=== PATIENT | female | born 1960 | race Caucasian/White ===

== ENCOUNTER 2021-04-06 14:09 | Emergency (ER) | payer MEDICARE, MEDICAID, SELFPAY ==
--- NOTE | ~2021-04-06 | XR_ITS ---
EXAMINATION: XR CHEST CLINICAL INFORMATION: Shortness of breath. COMPARISON: 08/16/2015 chest and rib radiographs. TECHNIQUE: 2 views of the chest were obtained. FINDINGS: No significant abnormality is noted involving the heart, lungs, mediastinum, bony thorax or soft tissues. Surgical clips overlie the right upper quadrant. XR/XR chest 2V IMPRESSION: No acute cardiopulmonary process.
[2021-04-06 14:12] VITALS: BP 153/81; PULSE 89; RESP 20; TEMP 36.5; O2SAT 93; BMI 30.7
[2021-04-06 16:04] LABS: Influenza A PCR NEGATIVE (Negative); Influenza B PCR NEGATIVE (Negative); Resp Syncy Virus RNA Qual PCR NEGATIVE (Negative); SARS COV2 PCR INHOUSE POSITIVE (Negative)
--- NOTE | 2021-04-06 16:04 | ED_ITS ---
HPI - URI/Sore Throat General Chief Complaint: Upper Respiratory Symptoms Stated Complaint: difficulty breathing Time Seen by Provider: 04/06/21 15:46 Source: patient Mode of arrival: ambulatory Limitations: no limitations History of Present Illness HPI Narrative: 60 yo pt presented c/o cough,congestion.She i been vaccinated for Covid with [facility] but she is been on contact with roman back MD elicited complaint: cough Onset (ago): day(s) (5) Consistency: constant Severity: moderate Description of mucous: yellow Able to tolerate fluids by mouth: Yes Exacerbating factors: nothing Relieving factors: nothing Related Data Allergies Allergy/AdvReac Type Severity Reaction Status Date / Time acetaminophen [From PERCOCET] Allergy Intermediate RASH Verified 04/06/21 14:12 amoxicillin [AMOXICILLIN] Allergy Intermediate DIFF Verified 04/06/21 14:12 BREATHING, HIVES oxycodone [From PERCOCET] Allergy Intermediate RASH Verified 04/06/21 14:12 codeine [CODEINE] Allergy Unknown UNKNOWN Verified 04/06/21 14:12 Sulfa (Sulfonamide Allergy Unknown RASH Verified 04/06/21 14:12 Antibiotics) [SULFA (SULFONAMIDE ANTIBIOTICS)] sulfamethoxazole AdvReac Unknown SEVERE Verified 04/06/21 14:12 [From BACTRIM] MIGRAINE trimethoprim [From BACTRIM] AdvReac Unknown SEVERE Verified 04/06/21 14:12 MIGRAINE Review of Systems Review of Systems: Yes all other systems are reviewed and are negative Constitutional: Constitutional: Reports fatigue and Denies fever(s) Cardiovascular: Cardiovascular: Reports no additional cardiovascular compla ints Respiratory: Respiratory: Reports no additional respiratory complaints Gastrointestinal: Gastrointestinal: Reports no additional gastrointestinal complaints Neurologic: Reports system reviewed and no additional complaints, except as documented Psychiatric: Psychiatric: Reports no additional psychiatric complaints Endocrine: Endocrine: Reports fatigue PMFSH Past Medical History Attestation statement: The following information was validated with the patient. Medical History Diabetes Gastroparesis Lung nodules Surgical History Hx of shoulder surgery Previous back surgery S/P lobectomy of lung Social History Social History Advance Directives: No Advance Directives Information Provided: No Patient : No Physical Exam Vital Signs: Vital Signs: Last Vital Signs Temp 97.7 F 04/06/21 14:12 Pulse 89 04/06/21 14:12 Resp 20 04/06/21 14:12 BP 153/81 H 04/06/21 14:12 Pulse Ox 93 04/06/21 14:12 Body Mass Index 30.7 Const: General: cooperative Orientation/consciousness: oriented to person, oriented to place, oriented to time and patient oriented x3 HENMT: Head: Yes normal to inspection Mouth: Normal oral and palatal mucosa present Neck: Neck: Yes normal visual inspection, Yes full ROM and Yes no lymphadenopathy Thyroid: Thyroid normal Chest: Chest palpation & inspection: normal inspection of the chest Resp: Auscultation: rhonchi Cardio: Jugular venous distension: no JVD Rate: regular rate Rhythm: regular rhythm Skin: General skin exam: no rashes or lesions noted Neuro: General: oriented to person, oriented to place, oriented to time and patient oriented x3 Cranial nerves: Yes CN's II-XII intact bilaterally Cognition (Neuro): normal cognition Gait exam (Neuro): Normal gait present Extrem: General: Yes normal to inspection, Yes full ROM and Yes capillary refill normal Course Reevaluation(s) Reevaluation #1: pt wants to go home,refuses labs,I just want to go home, I will check my oxygen with pulse oxymeter She is Sating well now; CXR negative MDM - URI/Sore Throat Lab Data Labs: Lab Results 04/06/21 Range/Units 14:20 Coronavirus (PCR) POSITIVE A (Negative) Influenza Type A (PCR) NEGATIVE (Negative) Influenza Type B (PCR) NEGATIVE (Negative) RSV RNA Qual (PCR) NEGATIVE (Negative) Imaging Data Chest x-ray: Radiologist's impression: cc: Generic ED Physician~ EXAMINATION: XR CHEST CLINICAL INFORMATION: Shortness of breath. COMPARISON: 08/16/2015 chest and rib radiographs. TECHNIQUE: 2 views of the chest were obtained. FINDINGS: No significant abnormality is noted involving the heart, lungs, mediastinum, bony thorax or soft tissues. Surgical clips overlie the right upper quadrant. XR/XR chest 2V IMPRESSION: No acute cardiopulmonary process. Dictated By: LOPEZ WATTS MD Signed By: <Electronically signed by LOPEZ WATTS MD in OV> 04/06/21 1459 DD/ 1438 TD/TT:? Engineering And Development Director: GUERDA Discharge Plan Discharge Clinical Impression: COVID-19 Patient Disposition: Home, Self-Care Instructions: COVID-19 (Coronavirus Disease 2019) (ED) Additional Instructions: follow up with your Primary Care Doctor, check your Oxygen with oxymeter (pulse oxymeter) you told me that you have one ,return if Sturation less than 91%. Drink plenty of fluids Referrals: August French MD [Primary Care Provider] - 2 days Interventions: ED Discharge Assessment Last Done: 04/06/21 16:44 Discharge Date/Time: 04/06/21 16:46
== END 2021-04-06 16:46 | disposition home or self-care (01) ==
PROVIDERS: Emergency Provider Emergency Medicine; PCP Internal Medicine
DX: U07.1 COVID-19 (principal); E11.9 Type 2 diabetes mellitus without complications
CPT/HCPCS: 0241U; 36415; 71046; 99283

== ENCOUNTER 2022-01-19 12:30 | Emergency (ER) | payer OTHER, SELFPAY ==
--- NOTE | ~2022-01-19 | XR_ITS ---
Indication: Fall, pain EXAMINATION: Left forearm, left elbow. 2 views of the left forearm do not demonstrate evidence for fracture. Single image detailed of the left elbow does not show evidence for fracture. There is some degenerative changes noted. XR/XR forearm LT 2V IMPRESSION: Limited views. No acute bony finding.
--- NOTE | ~2022-01-19 | CT_ITS ---
EXAMINATION: NONCONTRAST HEAD CT NONCONTRAST CERVICAL SPINE CT INDICATION INFORMATION: Fall COMPARISON: None TECHNIQUE: Separate noncontrast CT examinations of the head and cervical spine were performed. Coronal and sagittal images were created for each examination at the technologist workstation. This CT examination was performed using dose optimization techniques as appropriate, variously including the following: *Automated exposure control *Adjustment of mA and/or kV according to patient size (this includes techniques or standardized protocols for targeted exams where dose is matched to indication/reason for exam; i.e. extremities or head) *Use of iterative reconstruction technique DLP: 1079 mGy-cm FINDINGS: Head: There is no evidence of acute intracranial hemorrhage or territorial infarction. No abnormal mass effect or midline shift is seen. Lorenz[place] to white matter differentiation is well preserved. No extra-axial fluid collections are identified. No hydrocephalus. No significant volume loss. There is no abnormal attenuation within the brain parenchyma. No acute osseous or soft tissue abnormality. The mastoid air cells and visualized portions of the paranasal sinuses are well aerated. Cervical spine: There is anatomic alignment of the vertebral bodies and posterior elements. The atlantoaxial and atlantooccipital articulations are intact. Vertebral body heights and intervertebral disc spaces are maintained. No evidence of acute fracture. No prevertebral soft tissue swelling. Mild paraseptal emphysema emphysema seen at the lung apices.. The thyroid gland is unremarkable. CT/CT cervical spine wo con IMPRESSION: 1. No acute intracranial finding. 2. No acute fracture or malalignment of the cervical spine.
--- NOTE | ~2022-01-19 | XR_ITS ---
Indication: Fall, pain EXAMINATION: Left forearm, left elbow. 2 views of the left forearm do not demonstrate evidence for fracture. Single image detailed of the left elbow does not show evidence for fracture. There is some degenerative changes noted. XR/XR elbow LT min 3V IMPRESSION: Limited views. No acute bony finding.
--- NOTE | ~2022-01-19 | CT_ITS ---
EXAMINATION: NONCONTRAST HEAD CT NONCONTRAST CERVICAL SPINE CT INDICATION INFORMATION: Fall COMPARISON: None TECHNIQUE: Separate noncontrast CT examinations of the head and cervical spine were performed. Coronal and sagittal images were created for each examination at the technologist workstation. This CT examination was performed using dose optimization techniques as appropriate, variously including the following: *Automated exposure control *Adjustment of mA and/or kV according to patient size (this includes techniques or standardized protocols for targeted exams where dose is matched to indication/reason for exam; i.e. extremities or head) *Use of iterative reconstruction technique DLP: 1079 mGy-cm FINDINGS: Head: There is no evidence of acute intracranial hemorrhage or territorial infarction. No abnormal mass effect or midline shift is seen. [place] to white matter differentiation is well preserved. No extra-axial fluid collections are identified. No hydrocephalus. No significant volume loss. There is no abnormal attenuation within the brain parenchyma. No acute osseous or soft tissue abnormality. The mastoid air cells and visualized portions of the paranasal sinuses are well aerated. Cervical spine: There is anatomic alignment of the vertebral bodies and posterior elements. The atlantoaxial and atlantooccipital articulations are intact. Vertebral body heights and intervertebral disc spaces are maintained. No evidence of acute fracture. No prevertebral soft tissue swelling. Mild paraseptal emphysema emphysema seen at the lung apices.. The thyroid gland is unremarkable. CT/CT head/brain wo con IMPRESSION: 1. No acute intracranial finding. 2. No acute fracture or malalignment of the cervical spine.
[2022-01-19 12:32] VITALS: BP 160/82; PULSE 87; RESP 18; TEMP 37; O2SAT 95; BMI 30.7
--- NOTE | 2022-01-19 12:40 | ECG_ITS ---
Test Reason : s/p fall Blood Pressure : / mmHG Vent. Rate : 078 BPM Atrial Rate : 078 BPM P-R Int : 170 ms QRS Dur : 126 ms QT Int : 402 ms P-R-T Axes : 043 070 029 degrees QTc Int : 458 ms Normal sinus rhythm Right bundle branch block Abnormal ECG No previous ECGs available Referred By: Generic ED Physician Electronically Signed By:FLY HARDIN
== END 2022-01-20 00:07 | disposition left against medical advice (07) ==
PROVIDERS: Emergency Provider Emergency Medicine; PCP Internal Medicine
DX: S59.912A Unspecified injury of left forearm, initial encounter (principal); S09.90XA Unspecified injury of head, initial encounter; S59.902A Unspecified injury of left elbow, initial encounter; W01.190A Fall on same level from slipping, tripping and stumbling with subsequent striking against furniture, initial encounter; Y93.9 Activity, unspecified; Y92.019 Unspecified place in single-family (private) house as the place of occurrence of the external cause; Y99.9 Unspecified external cause status
CPT/HCPCS: 70450; 72125; 73080; 73090; 93005; 99282; 99284

== ENCOUNTER 2022-02-10 14:37 | Inpatient (IN) | payer OTHER, SELFPAY ==
--- NOTE | ~2022-02-10 | XR_ITS ---
EXAMINATION: XR CHEST CLINICAL INFORMATION: Shortness of breath COMPARISON: 04/06/2020 TECHNIQUE: 2 views of the chest were obtained. FINDINGS: Some new minimal bibasilar atelectasis is seen. A suture anchor is present in the right shoulder. Surgical clips again seen in the right upper quadrant. No other significant abnormality is noted involving the heart, lungs, mediastinum, bony thorax or soft tissues. XR/XR chest 2V IMPRESSION: No acute intrathoracic disease.
[2022-02-10 14:44] VITALS: BP 125/61; PULSE 120; RESP 22; TEMP 36.6; O2SAT 89; BMI 29.9
--- NOTE | 2022-02-10 14:57 | ED_ITS ---
HPI - Psych General Chief Complaint: Psychiatric Symptoms Stated Complaint: OD 400MG SEROQUEL,4MG ATIVAN IN SI ATTEMPT,SEC 12 Time Seen by Provider: 02/10/22 14:52 Source: patient Mode of arrival: EMS Limitations: no limitations History of Present Illness HPI Narrative: THIS IS A 61 YEARS OLD THE FEMALE BROUGHT IN ON A SECTION 12 FOR OVERDOSE OF LORAZEPAM AND SEROQUEL. PATIENT STATES THAT SHE TOOK 3 MG OF LORAZEPAM A 400 MG OF SEROQUEL IN ORDER TO SLEEP SHE DENIES SI AND HI. complaint: other (WANTED TO SLEEP) Onset (ago): hour(s) (1) Duration: constant History of same: No Exacerbating factors: none Associated psychiatric symptoms: depression Related Data Home Medications Medication Instructions Recorded Confirmed empagliflozin 25 mg tablet 1 tab PO DAILY 02/10/22 02/10/22 (Jardiance) ibuprofen 800 mg tablet 1 tab PO Q6H PRN Pain 02/10/22 02/10/22 insulin aspart U-100 100 unit/mL 4 - 8 unit subcut TID 02/10/22 02/10/22 (3 mL) subcutaneous pen (Novolog Flexpen U-100 Insulin aspart) lorazepam 1 mg tablet 1 tab PO BID 02/10/22 02/10/22 ondansetron HCl 4 mg tablet 1 tab PO BID PRN Nausea 02/10/22 02/10/22 pantoprazole 40 mg tablet,delayed 1 tab PO BID 02/10/22 02/10/22 release paroxetine HCl 40 mg tablet 1 tab PO DAILY 02/10/22 02/10/22 quetiapine 100 mg tablet 1 tab PO BEDTIME 02/10/22 02/10/22 quinapril 5 mg tablet 1 tab PO DAILY 02/10/22 02/10/22 rosuvastatin 40 mg tablet 1 tab PO DAILY 02/10/22 02/10/22 Allergies Allergy/AdvReac Type Severity Reaction Status Date / Time acetaminophen [From PERCOCET] Allergy Intermediate RASH Verified 04/06/21 14:12 amoxicillin [AMOXICILLIN] Allergy Intermediate DIFF Verified 04/06/21 14:12 BREATHING, HIVES oxycodone [From PERCOCET] Allergy Intermediate RASH Verified 04/06/21 14:12 codeine [CODEINE] Allergy Unknown UNKNOWN Verified 04/06/21 14:12 Sulfa (Sulfonamide Allergy Unknown RASH Verified 04/06/21 14:12 Antibiotics) [SULFA (SULFONAMIDE ANTIBIOTICS)] sulfamethoxazole AdvReac Unknown SEVERE Verified 04/06/21 14:12 [From BACTRIM] MIGRAINE trimethoprim [From BACTRIM] AdvReac Unknown SEVERE Verified 04/06/21 14:12 MIGRAINE Review of Systems Review of Systems: Yes all other systems are reviewed and are negative Constitutional: Constitutional: Reports no additional constitutional complaints Eyes: Eyes: Reports no additional eye complaints Cardiovascular: Cardiovascular: Reports no additional cardiovascular complaints Psychiatric: Psychiatric: Reports as per [facility] Past Medical History Medical History Diabetes Gastroparesis Lung nodules Surgical History Hx of shoulder surgery Previous back surgery S/P lobectomy of lung Social History Social History Patient Tobacco Use Status: Current everyday Tobacco user Smoked in Last 30 Days: Yes Substance Use Type: Marijuana and Prescription Drugs Substance Use Frequency: Daily Last Used Substance: Just Prior to Admission Any prior treatment program specific to substance use: No Advance Directives: No Advance Directives Information Provided: No Healthcare Proxy: No Guardian: No Physical Exam Vital Signs: Vital Signs: Last Vital Signs Temp 97.8 F 02/10/22 14:44 Pulse 66 02/10/22 16:11 Resp 18 02/10/22 18:00 BP 125/61 02/10/22 16:11 Pulse Ox 96 02/10/22 16:11 O2 Del Method 02/10/22 16:11 BMI result Body Mass Index 29.9 Const: General: cooperative Nutritional Appearance: average body habitus Orientation/consciousness: patient oriented x3 Limitations: no limitations HEENT: Head: Yes normal to inspection General nose exam: Normal external nose present Face and sinus: Yes normal facial exam Mouth: Normal oral and palatal mucosa present Throat: Yes posterior oropharynx normal Neck: Neck: Yes normal visual inspection and Yes full ROM Thyroid: Thyroid normal Chest: Chest palpation & inspection: normal inspection of the chest and normal palpation of entire chest wall Resp: Effort & Inspection: normal respiratory effort Auscultation: clear to auscultation bilaterally Percussion: percussion normal Cardio: Jugular venous distension: no JVD Rate: regular rate Rhythm: regular rhythm GI: Inspection: Yes normal to inspection Palpation (GI): Soft to palpation Skin: General skin exam: no rashes or lesions noted and elasticity normal Lesions: no lesions Rashes: no rashes Neuro: General: patient oriented x3 Course Course Course Narrative: Patient remained hemodynamically stable she was monitored for more than 2 hour ; vital sign at 450 PM are stable 02 Sat 96% RA ,pulse 66,RR 18 , normotensive, she is awake and alert at this time. She can be medically cleared . We will obtain psych eval Reevaluation(s) Reevaluation #1: seen by crisis section 12/bed search/anticipate psych admission.I will sign out the pt to Dr Curran [facility] - Psych Lab Data Result diagrams: 02/10/22 15:10 02/10/22 15:10 Labs: Lab Results 02/10/22 02/10/22 02/10/22 Range/Units 15:10 15:10 15:11 WBC 8.4 (4.8-10.8) X10*3/uL RBC 5.39 (4.20-5.50) X10*6/uL Hgb 17.2 H (12.0-16.0) g/dl Hct 51.2 H (37.0-47.0) % MCV 95.0 (80.0-98.0) fL MCH 31.9 (27.0-33.0) pg MCHC 33.6 (31.0-35.0) g/dl RDW 14.7 (11.0-16.0) % Plt Count 89 L (160-400) X10*3/uL MPV 11.5 (9.4-12.3) fL Immature Gran % (Auto) 0.7 H (0.0-0.4) % Neut % (Auto) 67.5 (45-73) % Lymph % (Auto) 23.5 (20-40) % [place] % (Auto) 6.9 (2-11) % Eos % (Auto) 1.0 (0-4) % Baso % (Auto) 0.4 (0-2) % Lymph # (Auto) 2.0 (1.2-4.9) X10*3/uL [place] # (Auto) 0.6 (0.1-1.2) X10*3/uL Eos # (Auto) 0.1 (0.0-0.4) X10*3/uL Baso # (Auto) 0.0 (0.0-0.2) X10*3/uL Abs Immat Gran (auto) 0.06 H (0.00-0.03) X10*3/uL Absolute Neuts (auto) 5.7 (2.0-8.3) x10*3/uL Absolute Nucleated RBC 0.000 (0.0-0.012) X10*3/uL Nucleated RBC % (auto) 0.0 (0.0-0.2) /100WBC Sodium 134 L (135-145) mmol/L Potassium 4.0 (3.3-5.1) mmol/L Chloride 102 (96-108) mmol/L Carbon Dioxide 23 (22-29) mmol/L Anion Gap 13 (12-20) BUN 13 (9-16) mg/dL Creatinine 0.71 (0.5-1.4) mg/dL Estim Creat Clear Calc 78.5 Estimated GFR > 60 Random Glucose 158 H (60-115) mg/dL Calcium 9.2 (8.4-10.2) mg/dL Total Bilirubin 0.5 (0.0-1.0) mg/dL AST 43 H (5-31) U/L ALT 37 H (0-31) U/L Alkaline Phosphatase 75 (39-117) U/L Total Protein 7.3 (6.5-8.0) g/dL Albumin 4.1 (3.5-5.0) g/dL Urine Color Urine Appearance Urine pH (5.0-8.0) Ur Specific [place] (1.005-1.025) Urine Protein (NEG-TRACE) MG/DL Urine Glucose (UA) (NEG) MG/DL Urine Ketones (NEG) MG/DL Urine Blood (NEG) Urine Nitrite (NEG) Ur Leukocyte Esterase (NEG) Salicylates < 5.0 L (15-30) mg/dL Urine Opiates Screen (Not Detect) Urine Fentanyl Screen (Not Detect) Acetaminophen < 1 (<30) mcg/mL Ur Barbiturates Screen (Not Detect) Ur Phencyclidine Scrn (Not Detect) Ur Amphetamines Screen (Not Detect) U Benzodiazepines Scrn (Not Detect) Urine Cocaine Screen (Not Detect) U Marijuana (THC) Screen (Not Detect) Ethyl Alcohol < 10 mg/dL COVID-19 (MARY) (Negative) COVID-19 Clin Com 02/10/22 02/10/22 02/10/22 Range/Units 17:09 20:45 20:45 WBC (4.8-10.8) X10*3/uL RBC (4.20-5.50) X10*6/uL Hgb (12.0-16.0) g/dl Hct (37.0-47.0) % MCV (80.0-98.0) fL MCH (27.0-33.0) pg MCHC (31.0-35.0) g/dl RDW (11.0-16.0) % Plt Count (160-400) X10*3/uL MPV (9.4-12.3) fL Immature Gran % (Auto) (0.0-0.4) % Neut % (Auto) (45-73) % Lymph % (Auto) (20-40) % [place] % (Auto) (2-11) % Eos % (Auto) (0-4) % Baso % (Auto) (0-2) % Lymph # (Auto) (1.2-4.9) X10*3/uL [place] # (Auto) (0.1-1.2) X10*3/uL Eos # (Auto) (0.0-0.4) X10*3/uL Baso # (Auto) (0.0-0.2) X10*3/uL Abs Immat Gran (auto) (0.00-0.03) X10*3/uL Absolute Neuts (auto) (2.0-8.3) x10*3/uL Absolute Nucleated RBC (0.0-0.012) X10*3/uL Nucleated RBC % (auto) (0.0-0.2) /100WBC Sodium (135-145) mmol/L Potassium (3.3-5.1) mmol/L Chloride (96-108) mmol/L Carbon Dioxide (22-29) mmol/L Anion Gap (12-20) BUN (9-16) mg/dL Creatinine (0.5-1.4) mg/dL Estim Creat Clear Calc Estimated GFR Random Glucose (60-115) mg/dL Calcium (8.4-10.2) mg/dL Total Bilirubin (0.0-1.0) mg/dL AST (5-31) U/L ALT (0-31) U/L Alkaline Phosphatase (39-117) U/L Total Protein (6.5-8.0) g/dL Albumin (3.5-5.0) g/dL Urine Color YELLOW Urine Appearance CLEAR Urine pH 6.0 (5.0-8.0) Ur Specific [place] 1.010 (1.005-1.025) Urine Protein TRACE (NEG-TRACE) MG/DL Urine Glucose (UA) NEG (NEG) MG/DL Urine Ketones 5 (NEG) MG/DL Urine Blood NEG (NEG) Urine Nitrite NEG (NEG) Ur Leukocyte Esterase NEG (NEG) Salicylates (15-30) mg/dL Urine Opiates Screen Not Detected (Not Detect) Urine Fentanyl Screen Not Detected (Not Detect) Acetaminophen (<30) mcg/mL Ur Barbiturates Screen Not Detected (Not Detect) Ur Phencyclidine Scrn Not Detected (Not Detect) Ur Amphetamines Screen Not Detected (Not Detect) U Benzodiazepines Scrn Not Detected (Not Detect) Urine Cocaine Screen Not Detected (Not Detect) U Marijuana (THC) Screen POSITIVE H (Not Detect) Ethyl Alcohol mg/dL COVID-19 (MARY) Negative (Negative) COVID-19 Clin Com See Note ECG Data ECG interpretation date: 02/10/22 Pacemaker model: EKG she was normal sinus rhythm a rate is 91 RBBB (old) Discharge Plan Discharge Clinical Impression: Depression, Overdose Prescriptions: No Action ibuprofen 800 mg tablet 1 tab PO Q6H PRN (Reason: Pain) ondansetron HCl 4 mg tablet 1 tab PO BID PRN (Reason: Nausea) quetiapine 100 mg tablet 1 tab PO BEDTIME pantoprazole 40 mg tablet,delayed release (DR/EC) 1 tab PO BID quinapril 5 mg tablet 1 tab PO DAILY lorazepam 1 mg tablet 1 tab PO BID paroxetine HCl 40 mg tablet 1 tab PO DAILY insulin aspart U-100 [Novolog Flexpen U-100 Insulin] 100 unit/mL (3 mL) insulin pen 4 - 8 unit subcut TID rosuvastatin 40 mg tablet 1 tab PO DAILY Jardiance 25 mg tablet 1 tab PO DAILY
[2022-02-10 15:15] LABS: MANUAL DIFF FLAG NO
[2022-02-10 15:19] LABS: Basophils Percent Auto 0.4 % (0-2); Eosinophils Absolute Auto 0.1 X10*3/uL (0.0-0.4); Hematocrit 51.2 % (37.0-47.0); Hemoglobin 17.2 g/dl (12.0-16.0); Imm Gran Abs Auto 0.06 X10*3/uL (0.00-0.03); Imm Gran Pct Auto 0.7 % (0.0-0.4); Lymphocytes Percent Auto 23.5 % (20-40); Mean Corpuscular HGB Conc 33.6 g/dl (31.0-35.0); Mean Corpuscular Hemoglobin 31.9 pg (27.0-33.0); Mean Platelet Volume 11.5 fL (9.4-12.3); Monocytes Absolute Auto 0.6 X10*3/uL (0.1-1.2); Monocytes Percent Auto 6.9 % (2-11); Neutrophils Absolute Auto 5.7 x10*3/uL (2.0-8.3); Neutrophils Percent Auto 67.5 % (45-73); Red Blood Count 5.39 X10*6/uL (4.20-5.50); Red Cell Distribution Width 14.7 % (11.0-16.0); White Blood Count 8.4 X10*3/uL (4.8-10.8)
[2022-02-10 15:20] LABS: Platelet Count 89 X10*3/uL (160-400)
[2022-02-10 15:33] LABS: Ethanol < 10 mg/dL
[2022-02-10 15:42] LABS: Acetaminophen LAB < 1 mcg/mL (<30); Alanine Aminotransferase 37 U/L (0-31); Albumin Level 4.1 g/dL (3.5-5.0); Alkaline Phosphatase 75 U/L (39-117); Anion Gap 13 (12-20); Aspartate Amino Transferase 43 U/L (5-31); Bilirubin Total 0.5 mg/dL (0.0-1.0); Blood Urea Nitrogen 13 mg/dL (9-16); Calcium 9.2 mg/dL (8.4-10.2); Carbon Dioxide 23 mmol/L (22-29); Chloride 102 mmol/L (96-108); Creatinine Clr Calc Pharmacy 78.5; Estimated Glomerular Filt Rate > 60; Glucose Random 158 mg/dL (60-115); Salicylate < 5.0 mg/dL (15-30); Sodium 134 mmol/L (135-145); Total Protein 7.3 g/dL (6.5-8.0)
[2022-02-10 16:11] VITALS: BP 125/61; PULSE 66; RESP 18; O2SAT 96
--- NOTE | 2022-02-10 16:16 | ECG_ITS ---
Test Reason : CHEST PAIN Blood Pressure : / mmHG Vent. Rate : 091 BPM Atrial Rate : 091 BPM P-R Int : 182 ms QRS Dur : 124 ms QT Int : 374 ms P-R-T Axes : 052 111 032 degrees QTc Int : 460 ms Sinus rhythm with Premature atrial complexes Right bundle branch block Abnormal ECG When compared with ECG of 19-JAN-2022 12:39, Premature atrial complexes are now Present QRS axis Shifted right Referred By: Victor Hugo Pierce Electronically Signed By:FLY HARDIN
--- NOTE | 2022-02-10 17:02 | PC.NURSE ---
[employer]AZ[employer] smart worksheet completed
[2022-02-10 17:35] LABS: COVID-19 Test Negative (Negative)
[2022-02-10 18:00] VITALS: RESP 18
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
--- NOTE | 2022-02-10 20:08 | PHA.MEDREC ---
Pharmacy Consult ? Medication Reconciliation Rn has completed the medication reconciliation. Pharmacy reviewed
[2022-02-10] MEDS: Nicotine 21 MG PATCH.TD24 TRANSDERMA (20:47)
[2022-02-10 20:54] LABS: Appearance Urine CLEAR; Color Urine YELLOW; Glucose Urine UA NEG (NEG); Leukocyte Esterase Urine NEG (NEG); Nitrite Urine NEG (NEG); Urine Blood NEG (NEG); Urine Ketones 5 MG/DL (NEG); Urine Protein TRACE MG/DL (NEG-TRACE)
[2022-02-10 21:06] LABS: Amphetamine Screen Urine Not Detected (Not Detect); Barbiturates, Urine Not Detected (Not Detect); Benzodiazepines Screen Urine Not Detected (Not Detect); Cannabinoid Screen Urine POSITIVE (Not Detect); Cocaine Screen Urine Not Detected (Not Detect); Fentanyl, urine Not Detected (Not Detect); Opiate Screen Urine Not Detected (Not Detect); Phencyclidine Screen Urine Not Detected (Not Detect)
--- NOTE | 2022-02-10 22:08 | MHC.CARE ---
Pt is an inpatient bedsearch at this time.
[2022-02-11 03:40] VITALS: BP 129/68; PULSE 70; RESP 17; TEMP 36.6; O2SAT 97
[2022-02-11 03:40] LABS: Glucose, Whole Blood 149 mg/dL (60-115)
--- NOTE | 2022-02-11 06:52 | PC.NURSE ---
Patient slept through the night, no distress observed/reported, behavior non concerning, patient constantly requesting discharge, awaiting M3 admission whole night, per M3 latest update patient will be accepted at 0800, POC 149 @ 0337, med rec completed/pending provider's approval, TR, will continue to monitor,
[2022-02-11 08:30] VITALS: BP 116/76; PULSE 78; RESP 16; TEMP 36.4; O2SAT 92
[2022-02-11] MEDS: Atorvastatin Calcium 80 MG TABLET PO (09:31)
[2022-02-11] MEDS: LORazepam 1 MG TABLET PO ×2 (09:31→22:36)
[2022-02-11] MEDS: lisinopriL 5 MG TABLET PO (09:31)
[2022-02-11] MEDS: PARoxetine HCL 40 MG TABLET PO (09:31)
[2022-02-11] MEDS: Nicotine 21 MG PATCH.TD24 TRANSDERMA (10:20)
[2022-02-11 13:28] LABS: Glucose, Whole Blood 139 mg/dL (60-115)
--- NOTE | 2022-02-11 13:58 | PC.ADMIT ---
Patient is a 61 year old female admitted to [place] [facility] Presented with a legal status of CV. Patient is cooperative with admission questions, but reiterates multiple times ?I do not want to be here. This is a mistake?. Per crisis evaluation Patients PCP provider was concerned was after a telehealth appointment with the patient, and patient made suicidal statements ?I am done, over it?. Patient then reported later that day to PCP that she did in fact ?overtake? her medication. Per patient ?This was not a suicide attempt. If I wanted to kill myself I would have taken the whole damn bottle hunny?. Patient expressed that ?I took an extra half tab of my seroquel, 200 mg instead of 150 mg, and 2 mg of ativan instead of 1 mg. I just wanted to sleep as I had not for days?. Patient denies SI/HI/AH/VH. Reports I am a very anxious person?. At this time the patient denies acute physical complaints. 15 minute safety checks initiated for safety.?
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
--- NOTE | 2022-02-11 16:10 | MHC.CLN ---
NUTRITION CONSULT FOR 5# WEIGHT LOSS. PATIENT REPORTS THAT SHE IS DIABETIC AND HAS HX OF GASTROPARESIS. EXPLAINED THAT ABOUT 4 DAYS PRIOR TO ADMISSION WAS VOMITING. DISLIKES GLUCERNA SUPPLEMENT. PATIENT OFF TOPIC OF NUTRITION AND BECAME WEEPY. ALERTED STAFF. DIET CHANGED TO DIABETIC 1800 KCALS PER CONVERSATION WITH PATIENT.
[2022-02-11] MEDS: Omeprazole 20 MG CAPSULE.DR PO (18:00)
[2022-02-11 18:02] LABS: Glucose, Whole Blood 201 mg/dL (60-115)
[2022-02-11 20:15] LABS: Glucose, Whole Blood 210 mg/dL (60-115)
[2022-02-11] MEDS: Insulin Lispro 100 UNIT/ML 3 ML VIAL SUBCUT (20:26)
[2022-02-11 20:29] VITALS: BP 168/76; PULSE 71; TEMP 36.8; O2SAT 98
[2022-02-11] MEDS: traZODone HCL 50 MG TABLET PO (22:35)
[2022-02-11] MEDS: QUEtiapine Fumarate 100 MG TABLET PO (22:36)
[2022-02-12] MEDS: Omeprazole 20 MG CAPSULE.DR PO ×2 (06:40→17:50)
[2022-02-12] MEDS: Nicotine 21 MG PATCH.TD24 TRANSDERMA (07:20)
[2022-02-12 07:56] VITALS: BP 114/64; PULSE 76; RESP 17; TEMP 36.6; O2SAT 97
[2022-02-12] MEDS: LORazepam 1 MG TABLET PO ×3 (07:57→22:47)
[2022-02-12] MEDS: lisinopriL 5 MG TABLET PO (07:57)
[2022-02-12] MEDS: PARoxetine HCL 40 MG TABLET PO (07:58)
[2022-02-12] MEDS: Atorvastatin Calcium 80 MG TABLET PO (07:58)
[2022-02-12 08:17] LABS: Glucose, Whole Blood 168 mg/dL (60-115)
[2022-02-12 08:42] LABS: Estimated Average Glucose 154 mg/dL
[2022-02-12 08:46] LABS: Cholesterol 173 mg/dL; HDL Cholesterol 45 mg/dL; LDL Cholesterol Calculated 100 mg/dl; Magnesium 1.8 mg/dL (1.6-2.6); Triglycerides 143 mg/dL
[2022-02-12 09:08] LABS: Free T4 (Free Thyroxine) 1.04 ng/dL (0.71-1.85); Thyroid Stimulating Hormone 2.36 uIU/mL (0.32-4.0)
[2022-02-12] MEDS: Empagliflozin 25 MG TABLET PO (10:44)
[2022-02-12 12:24] LABS: Glucose, Whole Blood 162 mg/dL (60-115)
[2022-02-12] MEDS: Insulin Lispro 100 UNIT/ML 3 ML VIAL SUBCUT ×2 (13:10→20:36)
[2022-02-12] MEDS: QUEtiapine Fumarate 25 MG TABLET PO (13:52)
--- NOTE | 2022-02-12 16:43 | P.PNPSI_ITS ---
Subjective Subjective Date of Service: 02/12/22 Reason For Visit: SI, DEPRESSION Interim History: Record reviewed. Discussed with Nursing. Patient frustrated regard hospital. Feels that, for taking out of context. States that primary care provider and patient had a misunderstanding and adamant she was not suicidal. Reports she took some medication with the goal of sleeping too and again adamant she was not suicidal or trying to hurt herself. Reports that she must have called her daughter after that and made those comments about overdosing because she can not remember. Reports she has too many things to live for and would never hurt herself. Described her sister committing suicide and this being a reason why she would never do that to her family. Reported meeting with her primary care provider via [employer] to and med medication changes that were recommended by psychiatry consult so she could feel overall less anxious and overwhelmed. Feels positive regarding current medication regimen here. And if for discharge. Give permission to speak with Aureliano at [phone]. Medication Compliance: Yes Side effects from medications: No Attending Groups: Yes Review of Systems Acute medical concerns: No Review of Systems Review of Systems Yes all other systems are reviewed and are negative Mental Status Exam Mental Status Exam Narrative: Engaged. Organized. Some frustration around being in the hospital. Adamantly denies depression, SI self-harm ideas or looseness. No psychosis. Insight and judgment okay Diagnostics Vital Signs (24Hr): Vital Signs - 24 hr 02/11/22 20:29 02/12/22 07:56 Temperature 98.2 F 97.8 F Pulse Rate 71 76 Respiratory Rate 17 Blood Pressure 168/76 H 114/64 Pulse Oximetry 98 97 Oxygen Delivery Method Room Air Room Air BMI result Body Mass Index 29.9 Labs Results: 02/10/22 15:10 02/10/22 15:10 Labs: Laboratory Results - last 48 hr 02/10/22 02/10/22 02/10/22 17:09 20:45 20:45 POC Glucose Estimat Average Glucose Hemoglobin A1c % Magnesium Triglycerides Cholesterol LDL Cholesterol, Calc HDL Cholesterol TSH Free T4 Urine Color YELLOW Urine Appearance CLEAR Urine pH 6.0 Ur Specific [place] 1.010 Urine Protein TRACE Urine Glucose (UA) NEG Urine Ketones 5 Urine Blood NEG Urine Nitrite NEG Ur Leukocyte Esterase NEG Urine Opiates Screen Not Detected Urine Fentanyl Screen Not Detected Ur Barbiturates Screen Not Detected Ur Phencyclidine Scrn Not Detected Ur Amphetamines Screen Not Detected U Benzodiazepines Scrn Not Detected Urine Cocaine Screen Not Detected U Marijuana (THC) Screen POSITIVE H COVID-19 (MARY) Negative COVID-19 [employer] See Note 02/11/22 02/11/22 02/11/22 03:37 13:25 17:58 POC Glucose 149 H 139 H 201 H Estimat Average Glucose Hemoglobin A1c % Magnesium Triglycerides Cholesterol LDL Cholesterol, Calc HDL Cholesterol TSH Free T4 Urine Color Urine Appearance Urine pH Ur Specific [place] Urine Protein Urine Glucose (UA) Urine Ketones Urine Blood Urine Nitrite Ur Leukocyte Esterase Urine Opiates Screen Urine Fentanyl Screen Ur Barbiturates Screen Ur Phencyclidine Scrn Ur Amphetamines Screen U Benzodiazepines Scrn Urine Cocaine Screen U Marijuana (THC) Screen COVID-19 (MARY) COVID-19 [employer] 02/11/22 02/12/22 02/12/22 20:10 07:29 07:29 POC Glucose 210 H Estimat Average Glucose 154 Hemoglobin A1c % 7.0 Magnesium 1.8 Triglycerides 143 Cholesterol 173 LDL Cholesterol, Calc 100 HDL Cholesterol 45 TSH 2.36 Free T4 1.04 Urine Color Urine Appearance Urine pH Ur Specific [place] Urine Protein Urine Glucose (UA) Urine Ketones Urine Blood Urine Nitrite Ur Leukocyte Esterase Urine Opiates Screen Urine Fentanyl Screen Ur Barbiturates Screen Ur Phencyclidine Scrn Ur Amphetamines Screen U Benzodiazepines Scrn Urine Cocaine Screen U Marijuana (THC) Screen COVID-19 (MARY) [employer] [facility] 02/12/22 02/12/22 08:13 12:20 POC Glucose 168 H 162 H Estimat Average Glucose Hemoglobin A1c % Magnesium Triglycerides Cholesterol LDL Cholesterol, Calc HDL Cholesterol TSH Free T4 Urine Color Urine Appearance Urine pH Ur Specific [place] Urine Protein Urine Glucose (UA) Urine Ketones Urine Blood Urine Nitrite Ur Leukocyte Esterase Urine Opiates Screen Urine Fentanyl Screen Ur Barbiturates Screen Ur Phencyclidine Scrn Ur Amphetamines Screen U Benzodiazepines Scrn Urine Cocaine Screen U Marijuana (THC) Screen COVID-19 (MARY) COVID-19 [employer] Imaging Radiology Impressions: ITS Impressions Chest X-Ray 02/10/22 16:29 IMPRESSION: No acute intrathoracic disease. Medications Medications Current Medications Al Hydroxide/Mg Hydroxide (Magnesium Hydrox/Alum Hydrox 30 Ml Oral.Susp) 30 ml PO Q6H PRN PRN Reason: Heartburn/Nausea Atorvastatin Calcium (Atorvastatin Calcium 80 Mg Tablet) 80 mg PO DAILY NATHAN Last Admin: 02/12/22 07:58 Dose: 80 mg Empagliflozin (Empagliflozin 25 Mg Tablet) 25 mg PO DAILY [facility] Last Admin: 02/12/22 10:44 Dose: 25 mg Insulin Human Lispro (Insulin Lispro 100 Unit/Ml 3 Ml Vial) 0 unit SUBCUT QIDACHS [facility]; Protocol Last Admin: 02/12/22 13:10 Dose: 2 unit Lisinopril (Lisinopril 5 Mg Tablet) 5 mg PO DAILY [facility] Last Admin: 02/12/22 07:57 Dose: 5 mg Lorazepam (Lorazepam 1 Mg Tablet) 1 mg PO BID [facility] Last Admin: 02/12/22 07:57 Dose: 1 mg Lorazepam (Lorazepam 1 Mg Tablet) 1 mg PO DAILY PRN PRN Reason: anxiety, agitation Last Admin: 02/12/22 15:47 Dose: 1 mg Magnesium Hydroxide (Milk Of Magnesia 30 Ml Oral.Susp) 30 ml PO DAILY PRN PRN Reason: Constipation Nicotine (Nicotine 21 Mg Patch.Td24) 21 mg TRANSDERMA DAILY [facility] Last Admin: 02/12/22 07:20 Dose: 21 mg Omeprazole (Omeprazole 20 Mg Capsule.Dr) 20 mg PO BID@0630,1630 [facility] Last Admin: 02/12/22 06:40 Dose: 20 mg Ondansetron HCl (Ondansetron Odt 4 Mg Tab.Rapdis) 4 mg TRANSLINGU BID PRN PRN Reason: Nausea Paroxetine HCl (Paroxetine Hcl 40 Mg Tablet) 40 mg PO DAILY [facility] Last Admin: 02/12/22 07:58 Dose: 40 mg Pharmacy Consult (Consult Rx Perform Med Rec) 1 each MISCELLANE ONCE PRN PRN Reason: Consult order Quetiapine Fumarate (Quetiapine Fumarate 100 Mg Tablet) 100 mg PO BEDTIME [facility] Last Admin: 02/11/22 22:36 Dose: 100 mg Quetiapine Fumarate (Quetiapine Fumarate 25 Mg Tablet) 25 mg PO TID PRN PRN Reason: agitation, anxiety Last Admin: 02/12/22 13:52 Dose: 25 mg Trazodone HCl (Trazodone Hcl 50 Mg Tablet) 50 mg PO BEDTIME PRN PRN Reason: Insomnia Last Admin: 02/11/22 22:35 Dose: 50 mg Allergies Allergies Allergy/AdvReac Type Severity Reaction Status Date / Time acetaminophen [From PERCOCET] Allergy Intermediate RASH Verified 04/06/21 14:12 amoxicillin [AMOXICILLIN] Allergy Intermediate DIFF Verified 04/06/21 14:12 BREATHING, HIVES oxycodone [From PERCOCET] Allergy Intermediate RASH Verified 04/06/21 14:12 codeine [CODEINE] Allergy Unknown UNKNOWN Verified 04/06/21 14:12 Sulfa (Sulfonamide Allergy Unknown RASH Verified 04/06/21 14:12 Antibiotics) [SULFA (SULFONAMIDE ANTIBIOTICS)] sulfamethoxazole AdvReac Unknown SEVERE Verified 04/06/21 14:12 [From BACTRIM] MIGRAINE trimethoprim [From BACTRIM] AdvReac Unknown SEVERE Verified 04/06/21 14:12 MIGRAINE Assessment & Plan Assessment & Plan (1) MDD (major depressive disorder), recurrent episode, moderate: Status: Acute Code(s): F33.1 - Major depressive disorder, recurrent, moderate (2) MADHURI (generalized anxiety disorder): Status: Acute Code(s): F41.1 - Generalized anxiety disorder Plan Mrs. Burgos is a 61 year-old woman with hx of MDD, MADHURI, brought in to [facility] ED on section 12 after she reported to PCP that she wanted to end it all, then reported to overdose until she is in coma, in setting of not being to sleep. She also left 7 voice messages to her granddaughter expressing suicidal ideation with plan to slit her wrist in context of problems with younger daughter with whom she resides. Utox positive for cannabis. Pt adamantly denies suicidal ideation, plan or intent. However, no insight as to how her comments may have alarmed others. PLAN 1. admit to M3, cv 15 minutes checks for safety 2. pending collateral information 3. continue current medications 4. Aftercare planning. 02/12/22: no medication changes. Will speak with regarding recent p resentation and safety And treatment plan accordingly I spent minutes with the patient and/or on the patient floor today, greater than?50% of which was spent counseling/coordinating care. Reason for contiued inpatient stay Substantial Risk for: harm to self
[2022-02-12 17:49] LABS: Glucose, Whole Blood 145 mg/dL (60-115)
[2022-02-12 20:31] LABS: Glucose, Whole Blood 272 mg/dL (60-115)
[2022-02-12] MEDS: traZODone HCL 50 MG TABLET PO (22:47)
[2022-02-12] MEDS: QUEtiapine Fumarate 100 MG TABLET PO (22:47)
[2022-02-12 23:08] VITALS: BP 118/62; PULSE 102; TEMP 36.7; O2SAT 95
[2022-02-13] MEDS: traZODone HCL 50 MG TABLET PO ×2 (00:30→22:59)
[2022-02-13] MEDS: Omeprazole 20 MG CAPSULE.DR PO ×2 (06:51→18:14)
[2022-02-13 07:56] VITALS: BP 93/66; PULSE 87; RESP 16; TEMP 36.6; O2SAT 97
[2022-02-13] MEDS: lisinopriL 5 MG TABLET PO (07:57)
[2022-02-13] MEDS: Nicotine 21 MG PATCH.TD24 TRANSDERMA (07:58)
[2022-02-13] MEDS: PARoxetine HCL 40 MG TABLET PO (07:58)
[2022-02-13] MEDS: LORazepam 1 MG TABLET PO ×2 (07:58→22:59)
[2022-02-13] MEDS: Atorvastatin Calcium 80 MG TABLET PO (07:58)
[2022-02-13 08:38] LABS: Glucose, Whole Blood 220 mg/dL (60-115)
[2022-02-13] MEDS: Empagliflozin 25 MG TABLET PO (09:32)
[2022-02-13] MEDS: Insulin Lispro 100 UNIT/ML 3 ML VIAL SUBCUT ×2 (09:32→18:14)
--- NOTE | 2022-02-13 12:15 | HO.PSYCHPN ---
Subjective Subjective Date of Service: 02/13/22 Reason For Visit: SI, DEPRESSION Interim History: No significant issues since yesterday. Less frustrated. Spoke with Aureliano and no safety concerns. Supported hospitalization in the context of comments that his made, but was very clear that she says things out of frustration and did not actually mean those. Patient continues to present overall is euthymic. Continues to deny SI or self-harm ideas. Feels supported in the hospital. Looking forward to discharge home with family. Medication Compliance: Yes Side effects from medications: No Attending Groups: Yes Review of Systems Acute medical concerns: No Mental Status Exam Mental Status Exam Narrative: Engaged. Organized. Adamantly denies depression, SI self-harm ideas or HI. No psychosis. Insight and judgment okay Diagnostics Vital Signs (24Hr): Vital Signs - 24 hr 02/13/22 23:00 02/14/22 08:35 Temperature 97.9 F 97.4 F Pulse Rate 86 87 Respiratory Rate 20 Blood Pressure 111/66 172/86 H Pulse Oximetry 96 96 Oxygen Delivery Method Room Air Room Air BMI result Body Mass Index 29.9 Labs Results: 02/10/22 15:10 02/10/22 15:10 Labs: Laboratory Results - last 48 hr 02/12/22 02/12/22 02/12/22 12:20 17:46 20:27 POC Glucose 162 H 145 H 272 H 02/13/22 02/13/22 02/13/22 08:34 12:51 17:58 POC Glucose 220 H 116 H 228 H 02/13/22 02/14/22 20:56 08:15 POC Glucose 110 111 Imaging Radiology Impressions: ITS Impressions Chest X-Ray 02/10/22 16:29 IMPRESSION: No acute intrathoracic disease. Medications Medications Current Medications Al Hydroxide/Mg Hydroxide (Magnesium Hydrox/Alum Hydrox 30 Ml Oral.Susp) 30 ml PO Q6H PRN PRN Reason: Heartburn/Nausea Atorvastatin Calcium (Atorvastatin Calcium 80 Mg Tablet) 80 mg PO DAILY [facility] Last Admin: 02/14/22 08:49 Dose: 80 mg Empagliflozin (Empagliflozin 25 Mg Tablet) 25 mg PO DAILY [facility] Last Admin: 02/14/22 08:50 Dose: 25 mg Insulin Human Lispro (Insulin Lispro 100 Unit/Ml 3 Ml Vial) 0 unit SUBCUT QIDACHS [facility]; Protocol Last Admin: 02/14/22 08:52 Dose: Not Given Lisinopril (Lisinopril 5 Mg Tablet) 5 mg PO DAILY [facility] Last Admin: 02/14/22 08:49 Dose: 5 mg Lorazepam (Lorazepam 1 Mg Tablet) 1 mg PO BID [facility] Last Admin: 02/14/22 08:49 Dose: 1 mg Lorazepam (Lorazepam 1 Mg Tablet) 1 mg PO DAILY PRN PRN Reason: anxiety, agitation Last Admin: 02/12/22 15:47 Dose: 1 mg Magnesium Hydroxide (Milk Of Magnesia 30 Ml Oral.Susp) 30 ml PO DAILY PRN PRN Reason: Constipation Nicotine (Nicotine 21 Mg Patch.Td24) 21 mg TRANSDERMA DAILY [facility] Last Admin: 02/14/22 10:10 Dose: Not Given Omeprazole (Omeprazole 20 Mg Capsule.Dr) 20 mg PO BID@0630,1630 [facility] Last Admin: 02/14/22 08:49 Dose: 20 mg Ondansetron HCl (Ondansetron Odt 4 Mg Tab.Rapdis) 4 mg TRANSLINGU BID PRN PRN Reason: Nausea Paroxetine HCl (Paroxetine Hcl 40 Mg Tablet) 40 mg PO DAILY [facility] Last Admin: 02/14/22 08:50 Dose: 40 mg Pharmacy Consult (Consult Rx Perform Med Rec) 1 each MISCELLANE ONCE PRN PRN Reason: Consult order Quetiapine Fumarate (Quetiapine Fumarate 100 Mg Tablet) 100 mg PO BEDTIME [facility] Last Admin: 02/13/22 22:59 Dose: 100 mg Quetiapine Fumarate (Quetiapine Fumarate 25 Mg Tablet) 25 mg PO TID PRN PRN Reason: agitation, anxiety Last Admin: 02/13/22 14:01 Dose: 25 mg Trazodone HCl (Trazodone Hcl 50 Mg Tablet) 50 mg PO BEDTIME PRN PRN Reason: Insomnia Last Admin: 02/14/22 00:05 Dose: 50 mg Allergies Allergies Allergy/AdvReac Type Severity Reaction Status Date / Time acetaminophen [From PERCOCET] Allergy Intermediate RASH Verified 04/06/21 14:12 amoxicillin [AMOXICILLIN] Allergy Intermediate DIFF Verified 04/06/21 14:12 BREATHING, HIVES oxycodone [From PERCOCET] Allergy Intermediate RASH Verified 04/06/21 14:12 codeine [CODEINE] Allergy Unknown UNKNOWN Verified 04/06/21 14:12 Sulfa (Sulfonamide Allergy Unknown RASH Verified 04/06/21 14:12 Antibiotics) [SULFA (SULFONAMIDE ANTIBIOTICS)] sulfamethoxazole AdvReac Unknown SEVERE Verified 04/06/21 14:12 [From BACTRIM] MIGRAINE trimethoprim [From BACTRIM] AdvReac Unknown SEVERE Verified 04/06/21 14:12 MIGRAINE Assessment & Plan Assessment & Plan (1) MDD (major depressive disorder), recurrent episode, moderate: Status: Acute Code(s): F33.1 - Major depressive disorder, recurrent, moderate (2) MADHURI (generalized anxiety disorder): Status: Acute Code(s): F41.1 - Generalized anxiety disorder Plan Mrs. Burgos is a 61 year-old woman with hx of MDD, MADHURI, brought in to [facility] [place] ED on section 12 after she reported to PCP that she wanted to end it all, then reported to overdose until she is in coma, in setting of not being to sleep. She also left 7 voice messages to her granddaughter expressing suicidal ideation with plan to slit her wrist in context of problems with younger daughter with whom she resides. Utox positive for cannabis. Pt adamantly denies suicidal ideation, plan or intent. However, no insight as to how her comments may have alarmed others. PLAN 1. admit to [facility], cv 15 minutes checks for safety 2. pending collateral information 3. continue current medications 4. Aftercare planning. 02/12/22: no medication changes. Will speak with regarding recent presentation and safety And treatment plan accordingly 02/13: Spoke with . If no safety concerns, will consider discharge 02/14/2022 I spent minutes with the patient and/or on the patient floor today, greater than?50% of which was spent counseling/coordinating care. Reason for contiued inpatient stay Substantial Risk for: harm to self
[2022-02-13 12:55] LABS: Glucose, Whole Blood 116 mg/dL (60-115)
[2022-02-13] MEDS: QUEtiapine Fumarate 25 MG TABLET PO (14:01)
[2022-02-13 18:03] LABS: Glucose, Whole Blood 228 mg/dL (60-115)
[2022-02-13 21:04] LABS: Glucose, Whole Blood 110 mg/dL (60-115)
[2022-02-13] MEDS: QUEtiapine Fumarate 100 MG TABLET PO (22:59)
[2022-02-13 23:00] VITALS: BP 111/66; PULSE 86; TEMP 36.6; O2SAT 96
[2022-02-14] MEDS: traZODone HCL 50 MG TABLET PO (00:05)
[2022-02-14 08:19] LABS: Glucose, Whole Blood 111 mg/dL (60-115)
[2022-02-14 08:35] VITALS: BP 172/86; PULSE 87; RESP 20; TEMP 36.3; O2SAT 96
[2022-02-14] MEDS: Atorvastatin Calcium 80 MG TABLET PO (08:49)
[2022-02-14] MEDS: lisinopriL 5 MG TABLET PO (08:49)
[2022-02-14] MEDS: Omeprazole 20 MG CAPSULE.DR PO (08:49)
[2022-02-14] MEDS: LORazepam 1 MG TABLET PO (08:49)
[2022-02-14] MEDS: Empagliflozin 25 MG TABLET PO (08:50)
[2022-02-14] MEDS: PARoxetine HCL 40 MG TABLET PO (08:50)
--- NOTE | 2022-02-14 10:15 | P.DS_ITS ---
DS: Providers Provider Date of Service: 02/14/22 Date of admission: 02/11/22 07:11 Date of discharge: 02/14/22 Primary care physician: August French MD DS: Diagnosis Discharge Diagnosis (1) MDD (major depressive disorder), recurrent episode, moderate: Status: Acute (2) MADHURI (generalized anxiety disorder): Status: Acute DS: Medications Discharge Medications Home Medications: Home Medications Medication Instructions Recorded Confirmed empagliflozin 25 mg tablet 1 tab PO DAILY 02/10/22 02/10/22 (Jardiance) ibuprofen 800 mg tablet 1 tab PO Q6H PRN Pain 02/10/22 02/10/22 insulin aspart U-100 100 unit/mL 4 - 8 unit subcut TID 02/10/22 02/10/22 (3 mL) subcutaneous pen (Novolog Flexpen U-100 Insulin aspart) lorazepam 1 mg tablet 1 tab PO BID 02/10/22 02/10/22 ondansetron HCl 4 mg tablet 1 tab PO BID PRN Nausea 02/10/22 02/10/22 pantoprazole 40 mg tablet,delayed 1 tab PO BID 02/10/22 02/10/22 release paroxetine HCl 40 mg tablet 1 tab PO DAILY 02/10/22 02/10/22 quetiapine 100 mg tablet 1 tab PO BEDTIME 02/10/22 02/10/22 quinapril 5 mg tablet 1 tab PO DAILY 02/10/22 02/10/22 rosuvastatin 40 mg tablet 1 tab PO DAILY 02/10/22 02/10/22 Mental Status Exam Mental Status Exam Narrative: Engaged. Organized. Adamantly denies depression, SI self-harm ideas or HI. No psychosis. Insight and judgment okay Data Data Completed and Pending Completed studies during hospitalization [Text1]: 02/10/22 02/10/22 02/10/22 15:10 15:10 15:11 WBC 8.4 RBC 5.39 Hgb 17.2 H Hct 51.2 H MCV 95.0 MCH 31.9 MCHC 33.6 RDW 14.7 Plt Count 89 L MPV 11.5 Immature Gran % (Auto) 0.7 H Neut % (Auto) 67.5 Lymph % (Auto) 23.5 [place] % (Auto) 6.9 Eos % (Auto) 1.0 Baso % (Auto) 0.4 Lymph # (Auto) 2.0 [place] # (Auto) 0.6 Eos # (Auto) 0.1 Baso # (Auto) 0.0 Abs Immat Gran (auto) 0.06 H Absolute Neuts (auto) 5.7 Absolute Nucleated RBC 0.000 Nucleated RBC % (auto) 0.0 Sodium 134 L Potassium 4.0 Chloride 102 Carbon Dioxide 23 Anion Gap 13 BUN 13 Creatinine 0.71 Estim Creat Clear Calc 78.5 Estimated GFR > 60 POC Glucose Random Glucose 158 H Estimat Average Glucose Hemoglobin A1c % Calcium 9.2 Magnesium Total Bilirubin 0.5 AST 43 H ALT 37 H Alkaline Phosphatase 75 Total Protein 7.3 Albumin 4.1 Triglycerides Cholesterol LDL Cholesterol, Calc HDL Cholesterol Vitamin B12 Folate TSH Free T4 Urine Color Urine Appearance Urine pH Ur Specific [place] Urine Protein Urine Glucose (UA) Urine Ketones Urine Blood Urine Nitrite Ur Leukocyte Esterase Salicylates < 5.0 L Urine Opiates Screen Urine Fentanyl Screen Acetaminophen < 1 Ur Barbiturates Screen Ur Phencyclidine Scrn Ur Amphetamines Screen U Benzodiazepines Scrn Urine Cocaine Screen U Marijuana (THC) Screen Ethyl Alcohol < 10 COVID-19 ([facility]) COVID-19 Clin Com 02/10/22 02/10/22 02/10/22 17:09 20:45 20:45 WBC RBC Hgb Hct MCV MCH MCHC RDW Plt Count MPV Immature Gran % (Auto) Neut % (Auto) Lymph % (Auto) [place] % (Auto) Eos % (Auto) Baso % (Auto) Lymph # (Auto) [place] # (Auto) Eos # (Auto) Baso # (Auto) Abs Immat Gran (auto) Absolute Neuts (auto) Absolute Nucleated RBC Nucleated RBC % (auto) Sodium Potassium Chloride Carbon Dioxide Anion Gap BUN Creatinine Estim Creat Clear Calc Estimated GFR POC Glucose Random Glucose Estimat Average Glucose Hemoglobin A1c % Calcium Magnesium Total Bilirubin AST ALT Alkaline Phosphatase Total Protein Albumin Triglycerides Cholesterol LDL Cholesterol, Calc HDL Cholesterol Vitamin B12 Folate TSH Free T4 Urine Color YELLOW Urine Appearance CLEAR Urine pH 6.0 Ur Specific [place] 1.010 Urine Protein TRACE Urine Glucose (UA) NEG Urine Ketones 5 Urine Blood NEG Urine Nitrite NEG Ur Leukocyte Esterase NEG Salicylates Urine Opiates Screen Not Detected Urine Fentanyl Screen Not Detected Acetaminophen Ur Barbiturates Screen Not Detected Ur Phencyclidine Scrn Not Detected Ur Amphetamines Screen Not Detected U Benzodiazepines Scrn Not Detected Urine Cocaine Screen Not Detected U Marijuana (THC) Screen POSITIVE H Ethyl Alcohol COVID-19 ([facility]) Negative COVID-19 Clin Com See Note 02/11/22 02/11/22 02/11/22 03:37 13:25 17:58 WBC RBC Hgb Hct MCV MCH MCHC RDW Plt Count MPV Immature Gran % (Auto) Neut % (Auto) Lymph % (Auto) [place] % (Auto) Eos % (Auto) Baso % (Auto) Lymph # (Auto) [place] # (Auto) Eos # (Auto) Baso # (Auto) Abs Immat Gran (auto) Absolute Neuts (auto) Absolute Nucleated RBC Nucleated RBC % (auto) Sodium Potassium Chloride Carbon Dioxide Anion Gap BUN Creatinine Estim Creat Clear Calc Estimated GFR POC Glucose 149 H 139 H 201 H Random Glucose Estimat Average Glucose Hemoglobin A1c % Calcium Magnesium Total Bilirubin AST ALT Alkaline Phosphatase Total Protein Albumin Triglycerides Cholesterol LDL Cholesterol, Calc HDL Cholesterol Vitamin B12 Folate TSH Free T4 Urine Color Urine Appearance Urine pH Ur Specific [place] Urine Protein Urine Glucose (UA) Urine Ketones Urine Blood Urine Nitrite Ur Leukocyte Esterase Salicylates Urine Opiates Screen Urine Fentanyl Screen Acetaminophen Ur Barbiturates Screen Ur Phencyclidine Scrn Ur Amphetamines Screen U Benzodiazepines Scrn Urine Cocaine Screen U Marijuana (THC) Screen Ethyl Alcohol COVID-19 ([facility]) COVID-19 Clin Com 02/11/22 02/12/22 02/12/22 20:10 07:29 07:29 WBC RBC Hgb Hct MCV MCH MCHC RDW Plt Count MPV Immature Gran % (Auto) Neut % (Auto) Lymph % (Auto) [place] % (Auto) Eos % (Auto) Baso % (Auto) Lymph # (Auto) [place] # (Auto) Eos # (Auto) Baso # (Auto) Abs Immat Gran (auto) Absolute Neuts (auto) Absolute Nucleated RBC Nucleated RBC % (auto) Sodium Potassium Chloride Carbon Dioxide Anion Gap BUN Creatinine Estim Creat Clear Calc Estimated GFR POC Glucose 210 H Random Glucose Estimat Average Glucose 154 Hemoglobin A1c % 7.0 Calcium Magnesium 1.8 Total Bilirubin AST ALT Alkaline Phosphatase Total Protein Albumin Triglycerides 143 Cholesterol 173 LDL Cholesterol, Calc 100 HDL Cholesterol 45 Vitamin B12 Folate TSH 2.36 Free T4 1.04 Urine Color Urine Appearance Urine pH Ur Specific [place] Urine Protein Urine Glucose (UA) Urine Ketones Urine Blood Urine Nitrite Ur Leukocyte Esterase Salicylates Urine Opiates Screen Urine Fentanyl Screen Acetaminophen Ur Barbiturates Screen Ur Phencyclidine Scrn Ur Amphetamines Screen U Benzodiazepines Scrn Urine Cocaine Screen U Marijuana (THC) Screen Ethyl Alcohol COVID-19 ([facility]) COVID-19 [employer] 02/12/22 02/12/22 02/12/22 07:29 08:13 12:20 WBC RBC Hgb Hct MCV MCH MCHC RDW Plt Count MPV Immature Gran % (Auto) Neut % (Auto) Lymph % (Auto) [place] % (Auto) Eos % (Auto) Baso % (Auto) Lymph # (Auto) [place] # (Auto) Eos # (Auto) Baso # (Auto) Abs Immat Gran (auto) Absolute Neuts (auto) Absolute Nucleated RBC Nucleated RBC % (auto) Sodium Potassium Chloride Carbon Dioxide Anion Gap BUN Creatinine Estim Creat Clear Calc Estimated GFR POC Glucose 168 H 162 H Random Glucose Estimat Average Glucose Hemoglobin A1c % Calcium Magnesium Total Bilirubin AST ALT Alkaline Phosphatase Total Protein Albumin Triglycerides Cholesterol LDL Cholesterol, Calc HDL Cholesterol Vitamin B12 Pending Folate Pending TSH Free T4 Urine Color Urine Appearance Urine pH Ur Specific [place] Urine Protein Urine Glucose (UA) Urine Ketones Urine Blood Urine Nitrite Ur Leukocyte Esterase Salicylates Urine Opiates Screen Urine Fentanyl Screen Acetaminophen Ur Barbiturates Screen Ur Phencyclidine Scrn Ur Amphetamines Screen U Benzodiazepines Scrn Urine Cocaine Screen U Marijuana (THC) Screen Ethyl Alcohol COVID-19 ([facility]) COVID-19 [employer] App 02/12/22 02/12/22 02/13/22 17:46 20:27 08:34 WBC RBC Hgb Hct MCV MCH MCHC RDW Plt Count MPV Immature Gran % (Auto) Neut % (Auto) Lymph % (Auto) [place] % (Auto) Eos % (Auto) Baso % (Auto) Lymph # (Auto) [place] # (Auto) Eos # (Auto) Baso # (Auto) Abs Immat Gran (auto) Absolute Neuts (auto) Absolute Nucleated RBC Nucleated RBC % (auto) Sodium Potassium Chloride Carbon Dioxide Anion Gap BUN Creatinine Estim Creat Clear Calc Estimated GFR POC Glucose 145 H 272 H 220 H Random Glucose Estimat Average Glucose Hemoglobin A1c % Calcium Magnesium Total Bilirubin AST ALT Alkaline Phosphatase Total Protein Albumin Triglycerides Cholesterol LDL Cholesterol, Calc HDL Cholesterol Vitamin B12 Folate TSH Free T4 Urine Color Urine Appearance Urine pH Ur Specific [place] Urine Protein Urine Glucose (UA) Urine Ketones Urine Blood Urine Nitrite Ur Leukocyte Esterase Salicylates Urine Opiates Screen Urine Fentanyl Screen Acetaminophen Ur Barbiturates Screen Ur Phencyclidine Scrn Ur Amphetamines Screen U Benzodiazepines Scrn Urine Cocaine Screen U Marijuana (THC) Screen Ethyl Alcohol COVID-19 ([facility]) COVID-19 PLAXD Com 02/13/22 02/13/22 02/13/22 12:51 17:58 20:56 WBC RBC Hgb Hct MCV MCH MCHC RDW Plt Count MPV Immature Gran % (Auto) Neut % (Auto) Lymph % (Auto) [place] % (Auto) Eos % (Auto) Baso % (Auto) Lymph # (Auto) [place] # (Auto) Eos # (Auto) Baso # (Auto) Abs Immat Gran (auto) Absolute Neuts (auto) Absolute Nucleated RBC Nucleated RBC % (auto) Sodium Potassium Chloride Carbon Dioxide Anion Gap BUN Creatinine Estim Creat Clear Calc Estimated GFR POC Glucose 116 H 228 H 110 Random Glucose Estimat Average Glucose Hemoglobin A1c % Calcium Magnesium Total Bilirubin AST ALT Alkaline Phosphatase Total Protein Albumin Triglycerides Cholesterol LDL Cholesterol, Calc HDL Cholesterol Vitamin B12 Folate TSH Free T4 Urine Color Urine Appearance Urine pH Ur Specific [place] Urine Protein Urine Glucose (UA) Urine Ketones Urine Blood Urine Nitrite Ur Leukocyte Esterase Salicylates Urine Opiates Screen Urine Fentanyl Screen Acetaminophen Ur Barbiturates Screen Ur Phencyclidine Scrn Ur Amphetamines Screen U Benzodiazepines Scrn Urine Cocaine Screen U Marijuana (THC) Screen Ethyl Alcohol COVID-19 ([facility]) COVID-19 PLAXD Com 02/14/22 08:15 WBC RBC Hgb Hct MCV MCH MCHC RDW Plt Count MPV Immature Gran % (Auto) Neut % (Auto) Lymph % (Auto) [place] % (Auto) Eos % (Auto) Baso % (Auto) Lymph # (Auto) [place] # (Auto) Eos # (Auto) Baso # (Auto) Abs Immat Gran (auto) Absolute Neuts (auto) Absolute Nucleated RBC Nucleated RBC % (auto) Sodium Potassium Chloride Carbon Dioxide Anion Gap BUN Creatinine Estim Creat Clear Calc Estimated GFR POC Glucose 111 Random Glucose Estimat Average Glucose Hemoglobin A1c % Calcium Magnesium Total Bilirubin AST ALT Alkaline Phosphatase Total Protein Albumin Triglycerides Cholesterol LDL Cholesterol, Calc HDL Cholesterol Vitamin B12 Folate TSH Free T4 Urine Color Urine Appearance Urine pH Ur Specific [place] Urine Protein Urine Glucose (UA) Urine Ketones Urine Blood Urine Nitrite Ur Leukocyte Esterase Salicylates Urine Opiates Screen Urine Fentanyl Screen Acetaminophen Ur Barbiturates Screen Ur Phencyclidine Scrn Ur Amphetamines Screen U Benzodiazepines Scrn Urine Cocaine Screen U Marijuana (THC) Screen Ethyl Alcohol COVID-19 ([facility]) COVID-19 Clin Com Imaging Diagnostic Imaging Impressions Chest X-Ray 02/10/22 16:29 IMPRESSION: No acute intrathoracic disease. DS: Summary Hospital Course Hospital Course: Admitted on to inpatient psychiatric unit for observation. Visually frustrated around being in the hospital. Subtle into the milieu. No evidence of safety concerns. Slept well and mood stable current medication regimen. also confirms no safety concerns prior to admission or during admission. Submitted 3 day notice and did not meet criteria for involuntary hospitalization or commitment. Patient will arrange her own follow-up care after discharge. Time spent discussing smoking cessation with patient: 3 to 10 minutes Status at Discharge Functional status at discharge: independent ambulation Overall status at discharge: patient is back to baseline Time Spent with Patient Time attestation: Total time spent providing and/or coordinating discharge services: Time spent: Greater than 30 minutes Discharge Plan Discharge Patient Disposition: Home, Self-Care Discharge Diagnosis: Major depression Referrals: Therapy & Psychiatry [Other] - 1 Week (*Please call the [employer] phone number on the back of your insurance card to see if they can recommend any outpatient providers. The patient declined referrals to [facility]*) August French MD [Primary Care Provider] - 1 Week Discharge Medications: New quetiapine 25 mg Tablet 25 mg PO TID PRN (Reason: agitation, anxiety) 30 Days Qty: 30 0RF trazodone 50 mg Tablet 50 mg PO BEDTIME PRN (Reason: Insomnia) 30 Days Qty: 30 0RF quetiapine 100 mg Tablet 100 mg PO BEDTIME 30 Days Qty: 30 0RF lorazepam 1 mg Tablet 1 mg PO BID 30 Days Qty: 60 0RF paroxetine HCl 40 mg Tablet 40 mg PO DAILY 30 Days Qty: 30 0RF Continued ibuprofen 800 mg tablet 1 tab PO Q6H PRN (Reason: Pain) ondansetron HCl 4 mg tablet 1 tab PO BID PRN (Reason: Nausea) pantoprazole 40 mg tablet,delayed release (DR/EC) 1 tab PO BID quinapril 5 mg tablet 1 tab PO DAILY insulin aspart U-100 [Novolog Flexpen U-100 Insulin] 100 unit/mL (3 mL) insulin pen 4 - 8 unit subcut TID rosuvastatin 40 mg tablet 1 tab PO DAILY Jardiance 25 mg tablet 1 tab PO DAILY Discontinued quetiapine 100 mg tablet 1 tab PO BEDTIME lorazepam 1 mg tablet 1 tab PO BID paroxetine HCl 40 mg tablet 1 tab PO DAILY Discharge Orders: Discharge Order (Routine); Ordered 02/14/22 Ordered By: Lee Hall Diet: Regular diet Activity on Discharge: As tolerated Stand Alone Forms: Patient Portal Discharge page Care Plan Goals: Follow up with community providers Health Concerns: None Plan of Treatment: Follow-up with community providers Assessment: Euthymic. No safety concerns.
--- NOTE | 2022-02-14 11:34 | PC.NURSE ---
Addendum entered by Shruthi Freire 02/14/22 12:50: Unable to fax discharge paperwork to MD as patient specifically declined to sign release for provider. Original Note: Patient alert, oriented x3. Denies SI/HI, denies AH/VH- patient reports 'I never needed to be here' but also states I learned a lot here! Affect even, patient verbalized understanding of discharge instruction, denies any questions or concerns. Belongings returned, patient awaiting to transport home. Patient reports she has an appointment with her provider which she set up prior to arrival.
[2022-02-15 06:23] LABS: Folate > 20.0 ng/mL (> or = 4.0); Vitamin B12 1133 pg/mL (200-900)
== END 2022-02-14 12:05 | disposition home or self-care (01) | DRG 885 ==
LOC: HO.ED 18:26 → HO.PADLT16 02-11 07:22
PROVIDERS: Registered Nurse; Admitting Provider Psychiatry & Neurology Psychiatry; Emergency Provider Emergency Medicine; PCP Internal Medicine; Visit Provider Psychiatry & Neurology Psychiatry
DX: F33.1 Major depressive disorder, recurrent, moderate (principal); R45.851 Suicidal ideations; F17.210 Nicotine dependence, cigarettes, uncomplicated; Z20.822 Contact with and (suspected) exposure to COVID-19; F41.1 Generalized anxiety disorder; Z71.6 Tobacco abuse counseling; Z90.2 Acquired absence of lung [part of]; Z88.0 Allergy status to penicillin; Z88.1 Allergy status to other antibiotic agents; Z88.2 Allergy status to sulfonamides; Z88.5 Allergy status to narcotic agent; Z88.6 Allergy status to analgesic agent; Z79.4 Long term (current) use of insulin; Z79.899 Other long term (current) drug therapy
CPT/HCPCS: 36415; 71046; 80053; 80061; 80143; 80179; 80307; 81003; 82077; 82607; 82746; 82947; 83036; 83735; 84439; 84443; 85025; 87635; 93005; 96360; 99285

== ENCOUNTER 2023-01-20 00:42 | Emergency (ER) | payer OTHER, SELFPAY ==
--- NOTE | ~2023-01-20 | XR_ITS ---
EXAMINATION: XR WRIST, LEFT CLINICAL INFORMATION: Pain. Fall. COMPARISON: Forearm radiographs from today TECHNIQUE: PA, lateral, and oblique views of the left wrist. FINDINGS: There is a minimally impacted distal radial metaphyseal fracture. Slight dorsal angulation of the distal fragment. Soft tissue swelling present. The carpal rows are well aligned. Cyst formation at the distal aspect of the scaphoid. XR/XR wrist LT min 3V IMPRESSION: Minimally impacted distal radial metaphyseal fracture with slight dorsal angulation.
--- NOTE | ~2023-01-20 | CT_ITS ---
EXAMINATION: NONCONTRAST HEAD CT NONCONTRAST CERVICAL SPINE CT INDICATION INFORMATION: Fall. Vomiting. COMPARISON: 01/19/2022 TECHNIQUE: Separate noncontrast CT examinations of the head and cervical spine were performed. Coronal and sagittal images were created for each examination at the technologist workstation. This CT examination was performed using dose optimization techniques as appropriate, variously including the following: *Automated exposure control *Adjustment of mA and/or kV according to patient size (this includes techniques or standardized protocols for targeted exams where dose is matched to indication/reason for exam; i.e. extremities or head) *Use of iterative reconstruction technique DLP: 897 mGy-cm FINDINGS: Head: There is no evidence of acute intracranial hemorrhage or territorial infarction. No abnormal mass effect or midline shift is seen. Lorenzana to white matter differentiation is well preserved. No extra-axial fluid collections are identified. No hydrocephalus. No significant volume loss. There is no abnormal attenuation within the brain parenchyma. No acute osseous or soft tissue abnormality. The mastoid air cells and visualized portions of the paranasal sinuses are well aerated. Cervical spine: There is anatomic alignment of the vertebral bodies and posterior elements. The atlantoaxial and atlantooccipital articulations are intact. Vertebral body heights and intervertebral disc spaces are maintained. Tiny endplate osteophytes. No evidence of acute fracture. No prevertebral soft tissue swelling. Mild emphysema at the lung apices. Hypoattenuating nodule in the right lobe of the thyroid gland measures [address]/CT cervical spine wo IV con IMPRESSION: 1. No acute intracranial finding. 2. No acute fracture or malalignment of the cervical spine. 3. 2 cm right thyroid lobe nodule. This can be further evaluated with nonemergent thyroid ultrasound.
[2023-01-20 00:52] VITALS: BP 100/55; BP 128/70; PULSE 73; PULSE 74; RESP 20; TEMP 36.9; O2SAT 91; O2SAT 95; BMI 29.3
--- NOTE | 2023-01-20 01:11 | ED_ITS ---
HPI - Fall General Chief Complaint: Fall Stated Complaint: fall with a head strike Time Seen by Provider: 01/20/23 00:58 Source: patient Mode of arrival: EMS Limitations: no limitations History of Present Illness HPI Narrative: Patient comes to the emergency room complaining of a fall. Patient states she has headache, vomited after striking her head and also complaining of left wrist pain. Patient states that she was walking, her PJ pants dropped and her feet got tangled in the pants. Patient fell forward hitting her head on the wall and trying to break the fall with her left wrist. EMS was called, patient refused using C-spine precautions. Related Data Home Medications Medication Instructions Recorded Confirmed empagliflozin 25 mg tablet 1 tab PO DAILY 02/10/22 02/10/22 (Jardiance) ibuprofen 800 mg tablet 1 tab PO Q6H PRN Pain 02/10/22 02/10/22 insulin aspart U-100 100 unit/mL 4 - 8 unit subcut TID 02/10/22 02/10/22 (3 mL) subcutaneous pen (Novolog FlexPen U-100 Insulin aspart) ondansetron HCl 4 mg tablet 1 tab PO BID PRN Nausea 02/10/22 02/10/22 pantoprazole 40 mg tablet,delayed 1 tab PO BID 02/10/22 02/10/22 release quinapril 5 mg tablet 1 tab PO DAILY 02/10/22 02/10/22 rosuvastatin 40 mg tablet 1 tab PO DAILY 02/10/22 02/10/22 Previous Rx's Medication Instructions Recorded lorazepam 1 mg tablet 1 mg PO BID 30 days #60 tabs 02/14/22 paroxetine HCl 40 mg tablet 40 mg PO DAILY 30 days #30 tabs 02/14/22 quetiapine 100 mg tablet 100 mg PO BEDTIME 30 days #30 tabs 02/14/22 quetiapine 25 mg tablet 25 mg PO TID PRN agitation, 02/14/22 anxiety 30 days #30 tabs trazodone 50 mg tablet 50 mg PO BEDTIME PRN Insomnia 30 02/14/22 days #30 tabs oxycodone 5 mg tablet 5 mg PO BID PRN pain #6 tabs 01/20/23 Allergies Allergy/AdvReac Type Severity Reaction Status Date / Time acetaminophen [From PERCOCET] Allergy Intermediate RASH Verified 01/20/23 00:51 amoxicillin [AMOXICILLIN] Allergy Intermediate DIFF Verified 01/20/23 00:51 BREATHING, HIVES oxycodone [From PERCOCET] Allergy Intermediate RASH Verified 01/20/23 00:51 codeine [CODEINE] Allergy Unknown UNKNOWN Verified 01/20/23 00:51 Sulfa (Sulfonamide Allergy Unknown RASH Verified 01/20/23 00:51 Antibiotics) [SULFA (SULFONAMIDE ANTIBIOTICS)] sulfamethoxazole AdvReac Unknown SEVERE Verified 01/20/23 00:51 [From BACTRIM] MIGRAINE trimethoprim [From BACTRIM] AdvReac Unknown SEVERE Verified 01/20/23 00:51 MIGRAINE Review of Systems Review of Systems: Constitutional : No Weight loss, No Fever, No Chills, No Night Sweats, No Fatigue, No Malaise ENT/Mouth : No Hearing loss, No Ear Pain, No Nasal Congestion, No Sinus Pain, No Hoarseness, No sore throat, No Rhinorrhea, No Swallowing Difficulty Eyes: No Eye Pain, No Swelling, No Redness, No Foreign Body, No Discharge, No Vision Changes Cardiovascular : No Chest Pain, No SOB, No Dyspnea on Exertion, No Orthopnea, No Edema, No Palpitations Respiratory : No Cough, No Sputum, No Wheezing, No Smoke Exposure, No Dyspnea Gastrointestinal : Complaining of nausea vomiting, No Diarrhea, No Constipation, No abdominal Pain, No Hematochezia, No Melena Genitourinary : no irregular bleeding, No Dysuria, No Urinary Frequency, No Hematuria, No Urinary Incontinence, No Urgency, No Flank Pain, No Urinary Flow Changes, No Hesitancy Musculoskeletal : Complaining of left wrist pain, No Myalgias, No Joint Swelling Skin : No Skin Lesions, No rash Neuro : No Weakness, No Numbness, No Paresthesias, No Loss of Consciousness, No Dizziness, complaining of Headache Psych : No Anxiety/Panic, No Depression, No SI/HI/AH/VH, No Social Issues, Heme/Lymph: No Bruising, No Bleeding,No Lymphadenopathy Endocrine : No Polyuria, No Polydipsia, No Temperature Intolerance PMFSH Past Medical History Medical History Diabetes Gastroparesis Lung nodules Overdose Surgical History Hx of shoulder surgery Previous back surgery S/P lobectomy of lung Social History Social History Household Members: Spouse Housing: House Do you presently have visiting nurse or other home services: Yes ([employer]) Patient Tobacco Use Status: Current everyday Tobacco user Tobacco use type: Cigarette Cigarette Packs Per Day: 1 Cigarettes Per Day: 20.0 e-Cigarette/Vaping Use: Never Used Second Hand Smoke Exposure: No Substance Use Type: Marijuana Advance Directives: No Advance Directives Information Provided: Yes service: No Sexual orientation: Straight/Heterosexual Physical Exam Vital Signs: Vital Signs: Last Vital Signs Temp 98.5 F 01/20/23 00:52 Pulse 73 01/20/23 01:21 Resp 18 01/20/23 01:21 BP 101/60 01/20/23 01:21 Pulse Ox 95 01/20/23 01:21 O2 Del Method Room Air 01/20/23 01:21 BMI result Body Mass Index 29.3 Const: Other: Appearance: Alert. Oriented X3. No acute distress. Eyes: Pupils equal, round and reactive to light. ENT: Pharynx normal. Neck: Normal inspection. Neck supple. No lymph nodes noted. No crepitus, no palpable step-offs CVS: Normal heart rate and rhythm. Pulses normal. Normal S1 and S2 Respiratory: No respiratory distress. Breath sounds normal. No Wheezing. No rales Abdomen: Soft and nontender. No rigidity. No distention. Skin: Skin warm and dry. Normal skin color. Normal skin turgor. Extremities: No deformity on the left wrist, no swelling, there is pain to palpation over the dorsum of the left wrist Neuro: Oriented X 3. No motor deficit. No sensory deficit. Moving all extremities. No slurred speech. CN 2 through 12 grossly intact Psych: calm, cooperative, normal affect Course Course Course Narrative: -patient's head CT and C-spine CT pending -x-rays of the responding -patient given p.o. Motrin and Zofran Medications Administered Discontinued Medications Generic Name Dose Route Start Last Admin Trade Name Freq PRN Reason Stop Dose Admin Ibuprofen 600 mg 01/20/23 01:04 01/20/23 01:25 Ibuprofen 600 Mg Tablet PO 01/20/23 01:05 600 mg ONCE ONE Administration Morphine Sulfate 4 mg 01/20/23 01:48 01/20/23 01:54 Morphine Sulfate 4 Mg/Ml Cartridge IM 01/20/23 01:49 4 mg ONCE ONE Administration Protocol Ondansetron HCl 4 mg 01/20/23 01:03 01/20/23 01:25 Ondansetron Odt 4 Mg Tab.Kelli ROSARIOU 01/20/23 01:04 4 mg ONCE ONE Administration Medical Decision Making Medical Decision Making MDM Narrative: -my interpretation of x-ray of the wrist: Distal radial head fracture -head CT and cervical spine CT, no acute findings. -patient's arm has fairly good alignment, reduction not indicated at this time. Patient's arm was put in a sugar-tong splint and in a sling -patient instructed to follow-up with orthopedics. Patient states that she has her own orthopedic surgeon already did surgery on her wrist on the right a year ago. Radiology Impression Discussion of test interpretation with radiology: I have reviewed the radiologist's reading. Radiologist Impression: FINDINGS: There is a minimally impacted distal radial metaphyseal fracture. Slight dorsal angulation of the distal fragment. Soft tissue swelling present. The carpal rows are well aligned. Cyst formation at the distal aspect of the scaphoid.? XR/XR wrist LT min 3V IMPRESSION: Minimally impacted distal radial metaphyseal fracture with slight dorsal angulation. FINDINGS: Head: There is no evidence of acute intracranial hemorrhage or territorial infarction. No abnormal mass effect or midline shift is seen. Lorenzana to white matter differentiation is well preserved. No extra-axial fluid collections are identified. No hydrocephalus. No significant volume loss. There is no abnormal attenuation within the brain parenchyma. No acute osseous or soft tissue abnormality. The mastoid air cells and visualized portions of the paranasal sinuses are well aerated. Cervical spine: There is anatomic alignment of the vertebral bodies and posterior elements. The atlantoaxial and atlantooccipital articulations are intact. Vertebral body heights and intervertebral disc spaces are maintained. Tiny endplate osteophytes. No evidence of acute fracture. No prevertebral soft tissue swelling. Mild emphysema at the lung apices. Hypoattenuating nodule in the right lobe of the thyroid gland measures [address]/CT cervical spine wo IV con IMPRESSION: 1.? No acute intracranial finding. 2.? No acute fracture or malalignment of the cervical spine. 3.? 2 cm right thyroid lobe nodule. This can be further evaluated with nonemergent thyroid ultrasound. ? Discharge Plan Discharge Clinical Impression: Distal radial fracture, Fall Patient Disposition: Home, Self-Care Instructions: Wrist Fracture in Adults (ED) Additional Instructions: Please follow-up with your primary care physician and Orthopedics tomorrow. If you have any worsening or new symptoms, please return to the emergency room or call 911 Prescriptions: New oxycodone 5 mg tablet 5 mg PO BID PRN (Reason: pain) Qty: 6 0RF Rx Instructions: Partial Fill upon patient request. No Action ibuprofen 800 mg tablet 1 tab PO Q6H PRN (Reason: Pain) ondansetron HCl 4 mg tablet 1 tab PO BID PRN (Reason: Nausea) pantoprazole 40 mg tablet,delayed release (DR/EC) 1 tab PO BID quinapril 5 mg tablet 1 tab PO DAILY insulin aspart U-100 [Novolog FlexPen U-100 Insulin] 100 unit/mL (3 mL) insulin pen 4 - 8 unit subcut TID rosuvastatin 40 mg tablet 1 tab PO DAILY Jardiance 25 mg tablet 1 tab PO DAILY quetiapine 25 mg Tablet 25 mg PO TID PRN (Reason: agitation, anxiety) 30 Days Qty: 30 0RF trazodone 50 mg Tablet 50 mg PO BEDTIME PRN (Reason: Insomnia) 30 Days Qty: 30 0RF quetiapine 100 mg Tablet 100 mg PO BEDTIME 30 Days Qty: 30 0RF lorazepam 1 mg Tablet 1 mg PO BID 30 Days Qty: 60 0RF paroxetine HCl 40 mg Tablet 40 mg PO DAILY 30 Days Qty: 30 0RF Referrals: Eliu Mack MD [Physician] - 01/23/23
[2023-01-20 01:21] VITALS: BP 101/60; PULSE 73; RESP 18; O2SAT 95
[2023-01-20] MEDS: Ondansetron ODT 4 MG TAB.RAPDIS TRANSLINGU (01:25)
[2023-01-20] MEDS: Ibuprofen 600 MG TABLET PO (01:25)
[2023-01-20] MEDS: Morphine Sulfate 4 MG/ML CARTRIDGE IM (01:54)
[2023-01-20 03:42] VITALS: BP 110/60; PULSE 70; RESP 16; O2SAT 94
== END 2023-01-20 03:43 | disposition home or self-care (01) ==
PROVIDERS: Emergency Provider Emergency Medicine
DX: S52.502A Unspecified fracture of the lower end of left radius, initial encounter for closed fracture (principal); F17.210 Nicotine dependence, cigarettes, uncomplicated; M54.2 Cervicalgia; R51.9 Headache, unspecified; W01.0XXA Fall on same level from slipping, tripping and stumbling without subsequent striking against object, initial encounter; Y93.9 Activity, unspecified; Y92.9 Unspecified place or not applicable; Y99.9 Unspecified external cause status; Z79.899 Other long term (current) drug therapy; Z71.6 Tobacco abuse counseling
CPT/HCPCS: 29125; 70450; 72125; 73110; 96372; 99284; J2270

== ENCOUNTER 2023-07-31 11:43 | Outpatient (AMB) | payer OTHER, SELFPAY ==
--- NOTE | 2023-07-31 11:51 | A.OFFVIS_ITS ---
Intake Vital Signs 07/31/23 12:29 Height 5 ft 2 in Weight 160 lb BMI 29.3 Intake Visit Reasons: RIVET BUCKER- Left wrist pain,DOI 01/19/23 Intake Note: Karyna a 63 year old left hand dominant female presents today as a new patient for a evaluation of his left shoulder pain. 01/19/23. Patient reports here for a second opinion, she was previously seen by [facility] who would not operate on patient due to her being a tobacco user. States that she had a fall injuring her left wrist. Her pain is located at the dorsal aspect of of wrist that radiates into her arm. Allergies acetaminophen [From PERCOCET] Allergy (Intermediate, Verified 07/31/23 11:51) RASH amoxicillin [AMOXICILLIN] Allergy (Intermediate, Verified 07/31/23 11:51) DIFF BREATHING, HIVES oxycodone [From PERCOCET] Allergy (Intermediate, Verified 07/31/23 11:51) RASH codeine [CODEINE] Allergy (Unknown, Verified 07/31/23 11:51) UNKNOWN Sulfa (Sulfonamide Antibiotics) [SULFA (SULFONAMIDE ANTIBIOTICS)] Allergy (Unknown, Verified 07/31/23 11:51) RASH sulfamethoxazole [From BACTRIM] Adverse Reaction (Unknown, Verified 07/31/23 11:51) SEVERE MIGRAINE trimethoprim [From BACTRIM] Adverse Reaction (Unknown, Verified 07/31/23 11:51) SEVERE MIGRAINE HPI RIVET BUCKER- Left wrist pain,DOI 01/19/23 HPI Details 63-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 She reports she is seeing here for a second opinion and was previously seen at [facility] where she was not operated on as she is a tobacco user. She states she has pain in the dorsal aspect of her wrist which radiates up to her arm. She also numbness in her hand with performing activities. She has not had physical therapy in the past. She was previously placed in a cast which did not provide her any relief. She has a history of bilateral CTR. She smokes half pack of cigarettes a day. She smokes marijuana. [facility] Medical History (Updated 07/31/23 @ 12:59 by Emelyn Pino PA-C) Overdose Lung nodules Diabetes Gastroparesis Surgical History (Updated 07/31/23 @ 12:34 by Maday Caruso [facility]) Previous back surgery Hx of shoulder surgery S/P lobectomy of lung Social History Household Members: Spouse Housing: House Do you presently have visiting nurse or other home services: Yes ([employer]) Patient Tobacco Use Status: Current everyday Tobacco user Tobacco use type: Cigarette Cigarette Packs Per Day: 1 Cigarettes Per Day: 20.0 e-Cigarette/Vaping Use: Never Used Second Hand Smoke Exposure: No Substance Use Type: Marijuana service: No Sexual orientation: Straight/Heterosexual Review of Systems Const All systems reviewed & are unremarkable except as noted in HPI and below Physical Exam Vital Signs: BMI result Body Mass Index 29.3 Const General: cooperative, healthy appearing, comfortable, no acute distress, well developed and alert Orientation/consciousness: patient oriented x3 HEENT Head: Yes normal to inspection, Yes normocephalic and Yes atraumatic Eyes General: appearance normal, both eyes and all related structures Resp Effort & Inspection: normal respiratory effort and able to speak in complete sentences Cardio Rate: regular rate Peripheral pulses: Peripheral pulses 2+ throughout GI Palpation (GI): Soft to palpation Skin Lesions: no lesions Rashes: no rashes Neuro General: patient oriented x3 Extrem Other: Left wrist: Normal to inspection. She has close to full ROM of the wrist. She can supinate and pronate without pain. She can make a full fist and fully extend digits. Positive Tinel?s. Office Procedures Fracture Care Fracture Billing Code: Fracture Billing Code Assessment & Plan Assessment & Plan (1) Distal radius fracture, left: Code(s): S52.502A - Unspecified fracture of the lower end of left radius, initial encounter for closed fracture Plan We discussed options which include conservative treatment with occupational therapy along with an EMG study to further evaluate the etiology of her numbness. Her initial injury was in January of 2023 and her fracture was treated without surgery. I explained she has lost some height in her distal radius, but to restore that, she would have to undergo an osteotomy with internal fixation. We are going to pursue non op treatment. She has a Velcro wrist splint at home which she will use while sleeping. She will see me back once the EMG study is performed. Orders: Orders XR wrist LT min 3V Today M25.532 - Pain in left wrist Emelyn Pino PA-C NE electromyogram (EMG) Today R20.0 - Anesthesia of skin, R20.2 - Paresthesia of skin Emelyn Pino PA-C OT Evaluation and Treatment Today S52.502A - Unspecified fracture of the lower end of left radius, initial encounter for closed fracture Emelyn Pino PA-C XR shoulder LT min 2V Today M25.512 - Pain in left shoulder Teo Saavedra MD NE nerve conduction velocity Today R20.0 - Anesthesia of skin, R20.2 - Paresthesia of skin Emelyn Pino PA-C Patient Instructions: Scribed for Emelyn Pino PA-C, by Wesley Gambino medical data analyst, on 07/31/2023 at 11:30 AM EST. I, Emelyn Pino PA-C, have personally reviewed and agree with the information entered by the scribe. Coding Level of Care Code New Pt Level 3 (92135) Diagnoses Distal radius fracture, left S52.502A CPT Codes Fracture Care - Fracture Billing Code: Fracture Billing Code ([id number])
[2023-07-31 12:29] VITALS: BMI 29.3
== END 2023-07-31 13:07 | disposition home or self-care (01) ==
PROVIDERS: Visit Provider Physician Assistant
DX: S52.502A Unspecified fracture of the lower end of left radius, initial encounter for closed fracture (principal); W19.XXXA Unspecified fall, initial encounter
CPT/HCPCS: 99203

== ENCOUNTER 2023-07-31 12:20 | Outpatient (REF) | payer OTHER, SELFPAY ==
--- NOTE | ~2023-07-31 | XR_ITS ---
EXAMINATION: XR WRIST, LEFT CLINICAL INFORMATION: Pain in the left wrist COMPARISON: Prior x-rays most recent January 2023. CT scan of the left wrist February 2023 TECHNIQUE: PA, lateral, and oblique views of the left wrist. FINDINGS: There is sclerosis along the area of the previously noted radius fracture indicative of fracture healing. Minimal if any lucency remaining. There is persistent deformity with dorsal tilt of the articular surface of the radius The remaining bones joints and soft tissues are normal. XR/XR wrist LT min 3V IMPRESSION: 1. Continued healing of the previously noted distal radius fracture. 2. Persistent dorsal tilt of the articular fragment.
== END 2023-07-31 12:21 | disposition home or self-care (01) ==
LOC: HO.HOSX 12:20
PROVIDERS: Visit Provider Orthopaedic Surgery
DX: M25.532 Pain in left wrist (principal); M25.512 Pain in left shoulder; S52.502A Unspecified fracture of the lower end of left radius, initial encounter for closed fracture; W18.30XA Fall on same level, unspecified, initial encounter; Y93.F9 Activity, other caregiving; Y92.9 Unspecified place or not applicable; Y99.9 Unspecified external cause status
CPT/HCPCS: 73110; 99202

== ENCOUNTER 2023-08-15 14:21 | Outpatient (RCR) | payer OTHER, SELFPAY ==
--- NOTE | 2023-08-17 13:36 | MHC.OT.OEV ---
[address] [phone] F: [phone] Occupational Therapy Evaluation Patient Name: Karyna Burgos Diagnosis: (L) Distal radius fracture Date of Onset: 01/19/23 Date of Surgery: Attending Provider: Emelyn Pino Prescribed Treatment: OT evaluation and treat MD Follow Up Appointment: History of Current Condition: Karyna a 63 year old left hand dominant female who had a fall on 01/19/23 while getting changed for bed resulting in a (L) distal radius fracture. Patient stated surgery was not indicated as she is a smoker. Significant Medical History: Overdose Lung nodules Diabetes Gastroparesis Precautions/Contraindications: Patient Goals: To get the pain down. Hand Dominance: Left Observations: QuickDASH Score: 90.9% Prior Level of Function and Occupation Self Care, Employment, Leisure: Retired. (I) ADLs/IADLs Living Situation, Family and/or Social Support: Lives with who is sickly Daughters support mother and father Lives in 1 level home with washer/dryer in basement Current Level of Function and Occupation Self Care, Employment, Leisure: mod (A) upper body self care tasks Has [employer] 19 hours a week for ADLs/IADLs Sleep: Will wake up at night due to pain Driving: Vision: Balance: Pain Assessment Pain Score: 10 Pain Scale Used: Numeric (0 - 10) Pain Location and Description: 10/10 (L) dorsum of wrist Aggravating Factors: Movement Alleviating Factors: Skin and Soft Tissue Assessment Skin and Soft Tissue: Comments: Nerve assessment Ulnar Nerve: WNL Median Nerve: WNL Radial Nerve: WNL Comments: Sensory Assessment Temperature: WNL Light Touch: WNL Proprioception: WNL Vibration: Comments: Edema Assessment Upper Extremity: Left Impaired Lower Extremity: Comments: (L) Dorsum of wrist Dexterity Assessment Dexterity: Left Impaired Comments: Functional Dexterity Test (R)25.11 seconds (L)37.22 seconds indicating impairment Finger opposition- impaired Special Tests Comments: AROM(PROM) Strength Cervical Cervical Flexion: Cervical Extension: Cervical Lateral Flexion: Cervical Rotation: Comments: Shoulder Flexion: WFL Extension: WFL Abduction: Internal Rotation: External Rotation: Comments: Flexion: 3+/5 Extension:3+/5 Abduction: Internal Rotation: External Rotation: 3+/5 Comments: Elbow Flexion: WFL Extension: WFL Pronation: Supination: Comments: pronation/ supination limited by pain Flexion: 3/5 Extension: 3/5 Pronation: 3/5 Supination: 3/5 Comments: Wrist Flexion: 20 Extension: 10 Ulnar Deviation: 10 Radial Deviation: 15 Comments: Flexion: Extension: Ulnar Deviation: Radial Deviation: Comments: Not assessed due to pain Thumb Thumb CMC Flexion: WFL Thumb MCP Flexion: Thumb IP Flexion: Radial Abduction: Palmar Abduction: [place] (Kapandji 0-10): Comments: Digits Index MCP: WFL PIP: DIP: Long MCP: WFL PIP: DIP: Ring MCP: PIP: DIP: Small MCP: PIP: DIP: Comments: 4th and 5th digit limited by pain Gross Grasp: Lateral Pinch: 1 Two-Point Pinch: 3 Three-Jaw Fran: 2 Comments: Right percolator operator strength= 29.3 lbs. Left percolator operator strength= 1.6 lbs. Patient Education Primary Language: Mongolian Diagnostic Assistant Required: No Current Knowledge: Understands information with skills for self-management Teaching Method: Demonstration Handouts Education Needs Identified on Evaluation: ADL's Exercise Pain Safety How did patient/family demonstrate learning? Patient verbalizes Barriers to Learning: None Readiness for Learning: Accepting Who was educated? Patient Comments: Plan of Care Assessment: Karyna a 63 year old left hand dominant female who was referred by Emelyn Pino MD for a fall on 01/19/23 while getting changed for bed resulting in a (L)distal radial fracture. This was treated without surgery and issued a cast. Patient stated she did not have surgery as she is a smoker. She states she has 10/10 pain constantly at rest and at night and the pain will wake her. Denies numbness or tingling. Patient stated she has not been using her (L) hand due to the pain. She reported her prior level of function as (I) with all ADLs/IADLs currently she is receiving [employer] assistance 19 hours a week for upper body self care tasks and grocery shopping. She lives with her in a 1 level home and has 2 adult daughters that will provide support if needed. Based on initial evaluation her current wrist ROM measurements are as follows: 10* extension, 20* flexion, 10* ulna deviation and radial deviation 15*. Patient's percolator operator strength is 29.3lbs, and 1.6lbs (L), pinch 1lbs. 3 jaw fran is 2lbs., and lateral pinch is 3 lbs. Quick DASH= 90.9% perceived impairment during performance of self care tasks. Patient's current level of function is mod (A) for upper body self care tasks as patient presents with impaired coordination, impaired range of motion, impaired strength, impaired functional activity tolerance as she reports 10/10 pain and impaired performance of self care tasks. Due to the documented impairments it is recommended that patient receive skilled OT in order for patient to achieve her prior level of function of (I) and to achieve her goal of getting her hand better . Thank you for your referral. STG Duration: 2 weeks Short Term Goals: Patient will report 8/10 pain in left wrist Patient will increase wrist flexion to 30* Patient will increase wrist extension to 20* Patient will increase (L) percolator operator strength to 5lbs. LTG Duration: 4 weeks Inventory Representative Goals: Patient will report 0/10 pain in left wrist Patient will have ROM of wrist WFL Patient will be (I) with HEP Patient's Quick DASH score will have decreased to 45% indicating improved performance of (L) upper extremity Frequency and Duration: The patient will be seen Treatment Plan: Therapeutic Exercise Therapeutic Activity Home Exercise Program Patient Education Edema Control ADL Training Iontophoresis Paraffin Fluidotherapy MHP Cold Packs Soft Tissue Mobilization Kinesiotaping 2x a week for 4 weeks Electronically Signed By: DEBBIE Gandara/Jarad, CLJeimy Reviewed/agree with student documentation: Therapist: Please sign and return to therapist, Thank you for your referral.
== END 2024-01-10 13:30 | disposition home or self-care (01) ==
LOC: HO.OT 14:21
PROVIDERS: PCP Internal Medicine; Visit Provider Physician Assistant
DX: S52.502D Unspecified fracture of the lower end of left radius, subsequent encounter for closed fracture with routine healing (principal)
CPT/HCPCS: 97110; 97165

== ENCOUNTER 2023-09-27 13:37 | Outpatient (AMB) | payer OTHER, SELFPAY ==
--- NOTE | 2023-09-27 13:50 | MHC.OFFVIS ---
Intake Vital Signs 09/27/23 13:56 Height 5 ft 2 in Weight 160 lb BMI 29.3 Intake Visit Reasons: O/V Distal radius fracture, left january 2023 LV Intake Note: Karyna 63 yr old female who is left hand dominant, presents today for her follow up visit for her Distal radius fracture, left from 01/19/23. States since her last visit with Gonzalo Sanabria, she has cont's to have pain and constant numbness in wrist. States she would like to discuss if surgery is needed. States she has tried casting for 3 months and also bracing with NEOS with no improvement. Allergies acetaminophen [From PERCOCET] Allergy (Intermediate, Verified 09/27/23 13:56) RASH amoxicillin [AMOXICILLIN] Allergy (Intermediate, Verified 09/27/23 13:56) DIFF BREATHING, HIVES oxycodone [From PERCOCET] Allergy (Intermediate, Verified 09/27/23 13:56) RASH codeine [CODEINE] Allergy (Unknown, Verified 09/27/23 13:56) UNKNOWN Sulfa (Sulfonamide Antibiotics) [SULFA (SULFONAMIDE ANTIBIOTICS)] Allergy (Unknown, Verified 09/27/23 13:56) RASH sulfamethoxazole [From BACTRIM] Adverse Reaction (Unknown, Verified 09/27/23 13:56) SEVERE MIGRAINE trimethoprim [From BACTRIM] Adverse Reaction (Unknown, Verified 09/27/23 13:56) SEVERE MIGRAINE HPI O/V Distal radius fracture, left january 2023 LV HPI Details Karyna is a 63 year old left hand dominant woman who presents to discuss her left wrist pain & hand numbness. She reports a left distal radius fracture, after a fall, DOI: 01/19/23. She says she was seen at [facility], who refused to operate as she was a daily smoker. This was managed non-operatively in a cast She complains of pain constantly in her wrist, and says she cant use it . She says she has tried bracing without relief She was last seen by NELDA Sanabria on 07/31/23, and was sent for a NCS and for OT hand therapy. She was seen by OT on 08/17/23, but has not been seen since. She reports that she hits or bumps things frequently by accident, and tends to have some mild sores & bruises on her body. She says she has tried therapy in the past, but this blew up her fingers like sausages and she stopped due to the pain & swelling. She says she has a list of exercises at home, but has not been doing them as they cause her pain She also complains of numbness in her left arm, which she says radiates from her shoulder down to her hand, and she has not completed her ordered NCS. Her old NCS done at [facility] on 04/27/23 was unremarkable and normal in her left wrist. She reports a hx of bilateral carpal tunnel release at an outside clinic. She reports a hx of bilateral shoulder surgery that was done by Dr. Saavedra in the past. She is a Diabetic and smokes & vapes Marijuana daily, and has been since she was 16 years old. 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) Patient Tobacco Use Status: Current everyday Tobacco user Tobacco use type: Cigarette Cigarette Packs Per Day: 1 Cigarettes Per Day: 20.0 e-Cigarette/Vaping Use: Never Used Second Hand Smoke Exposure: No Substance Use Type: Marijuana service: No Sexual orientation: Straight/Heterosexual Review of Systems Const All systems reviewed & are unremarkable except as noted in HPI and below Physical Exam Vital Signs: BMI result Body Mass Index 29.3 Const General: cooperative, healthy appearing and no acute distress Orientation/consciousness: patient oriented x3 HEENT Head: Yes normocephalic and Yes atraumatic Eyes EOM: EOMs intact bilaterally Resp Effort & Inspection: normal respiratory effort and able to speak in complete sentences Cardio Jugular venous distension: no JVD Skin General skin exam: turgor normal Rashes: no rashes Neuro General: patient oriented x3 Extrem Other: Evaluation of Left Upper Extremity: The patient is alert, oriented, and in no acute distress She was very apprehensive to have her wrist examined today Neuro: Median, Ulnar, Radial nerves motor and sensory intact and sensation is normal to the tips of all digits today in clinic Vascular: Cap refill brisk ROM: She can make a fist and extend all her digits No locking or catching She initially complained of pain even as I approached touching her wrist. As we progress through the visit, and with reassurance that her fracture was indeed well healed she was able to demonstrate range of motion without pain except for it extremes of motion. The fracture itself was completely nontender. She did have several areas of ecchymosis on the dorsal aspect of her forearm and a couple of scabbed over small wounds that she says were from striking her forearm on things. She says that she takes aspirin but no other blood thinners. She is rather slender. Wrist ROM: Flexion: ~20 degrees Extension: ~65 degrees Supination: 65 pronation: 80 Visible apex volar deformity, but this is completely non-tender Skin: No lacerations or abrasions. General: No Ecchymosis. No Erythema or evidence of infection. Radiographs: 3 views of the left wrist from 07/31/23 were reviewed by me today in clinic. They show a left distal radius fracture, malunion, with ~18 degrees dorsal tilt on the lateral view Nerve Conduction Study Left side only Normal study Dr. Durbin, [facility] neurology 04/27/23 Psych Appearance: grossly normal Affect: normal affect Attitude: cooperative Assessment & Plan Assessment & Plan (1) Stiffness of left wrist joint: Code(s): M25.632 - Stiffness of left wrist, not elsewhere classified (2) Distal radius fracture, left: Code(s): S52.502A - Unspecified fracture of the lower end of left radius, initial encounter for closed fracture (3) MADHURI (generalized anxiety disorder): Code(s): F41.1 - Generalized anxiety disorder Plan Assessment & Plan: 1. Left wrist stiffness, S/P distal radius fracture 2. Left distal radius fracture, malunion From a fall, DOI: 01/19/23 That 18 degrees apex volar angulation I educated her about this condition I discussed operative and non-operative treatment options, including a possible corrective osteotomy She is not a good surgical candidate as she smokes Marijuana daily, vapes Marijuana, and has recently switched from cigarettes to using a Nicotine patch in the last several weeks. She has been smoking since she was ~16 years old, and marijuana just about as long I discussed activity modification and explained the importance of ROM exercises & using her wrist I ordered OT hand therapy to work on gentle wrist ROM & normalizing hand function She will perform ROM exercises at home, 20x daily I counselled her on the effects of smoking, and encouraged her to consider transitioning to edibles for Marijuana use She will follow up prn 3. Left arm numbness From her forearm up to her shoulder She has a hx of bilateral carpal tunnel release in the past Recent nerve conduction study within normal limits Scribed for Rachael Wong MD by Amador Lunsford, medical records clerk, on 09/27/23 at 2:35 PM, EST. Coding Level of Care Code New Pt Level 4 (51298) Diagnoses Stiffness of left wrist joint M25.632 Distal radius fracture, left S52.502A MADHURI (generalized anxiety disorder) F41.1
[2023-09-27 13:56] VITALS: BMI 29.3
== END 2023-09-27 14:35 | disposition home or self-care (01) ==
PROVIDERS: PCP Internal Medicine; Visit Provider Orthopaedic Surgery
DX: M25.632 Stiffness of left wrist, not elsewhere classified (principal); S52.502A Unspecified fracture of the lower end of left radius, initial encounter for closed fracture
CPT/HCPCS: 99213

== ENCOUNTER → 2023-09-27 13:37 | Outpatient (BNVA) | payer OTHER, SELFPAY | PROVIDERS: PCP Internal Medicine; Visit Provider Orthopaedic Surgery | DX: M25.632 Stiffness of left wrist, not elsewhere classified (principal); S52.502P Unspecified fracture of the lower end of left radius, subsequent encounter for closed fracture with malunion; F41.1 Generalized anxiety disorder | CPT/HCPCS: 99212 ==

== ENCOUNTER 2023-11-15 09:53 | Outpatient (AMB) | payer OTHER, SELFPAY ==
--- NOTE | 2023-11-15 09:53 | A.OFFVIS_ITS ---
Intake Intake Visit Reasons: Telehealth LT dis.rad fx, DOI: 01/19/23 Intake Note: Karyna 63 yr old female presents via telehealth visit for her left dis.rad fx, DOI: 01/19/23. Allergies acetaminophen [From PERCOCET] Allergy (Intermediate, Verified 09/27/23 13:56) RASH amoxicillin [AMOXICILLIN] Allergy (Intermediate, Verified 09/27/23 13:56) DIFF BREATHING, HIVES oxycodone [From PERCOCET] Allergy (Intermediate, Verified 09/27/23 13:56) RASH codeine [CODEINE] Allergy (Unknown, Verified 09/27/23 13:56) UNKNOWN Sulfa (Sulfonamide Antibiotics) [SULFA (SULFONAMIDE ANTIBIOTICS)] Allergy (Unknown, Verified 09/27/23 13:56) RASH sulfamethoxazole [From BACTRIM] Adverse Reaction (Unknown, Verified 09/27/23 13:56) SEVERE MIGRAINE trimethoprim [From BACTRIM] Adverse Reaction (Unknown, Verified 09/27/23 13:56) SEVERE MIGRAINE HPI Telehealth LT dis.rad fx, DOI: 01/19/23 HPI Details Karyna is a 63 year old left hand dominant woman who presents for a telehealth appointment to discuss her left distal radius malunion. She had a left distal radius fracture, after a fall, DOI: 01/19/23. She says she was seen at [facility], who refused to operate as she was a daily smoker. This was managed non-operatively in a cast She was seen by OT on 08/17/23, but has not been seen since. She says she is not interested in surgery. She complains of pain constantly in her wrist, and says she cant use it . She continues to have pain and limited ROM in her wrist, along with numbness in her wrist. She denies any numbness in her fingers, and has not completed her ordered NCS. She reports that she hits or bumps things frequently by accident, and tends to have some mild sores & bruises on her left arm & wrist. She says she has a list of exercises at home which she tries to perform, but she continues to feel limited. I ordered OT hand surgery when I last saw her on 09/27/2023 but she declined to use it, preferring her home exercises. Her old NCS done at [facility] on 04/27/23 was unremarkable and normal in her left wrist. She reports a hx of bilateral carpal tunnel release at an outside clinic. She is a Diabetic and smokes & vapes Marijuana daily, and has been since she was 16 years old. 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 Please see that note as necessary to review that physical exam, radiographs etc.. She has a left distal radius malunion with about 18 degrees of apex volar angulation. The fracture is well healed. Assessment & Plan Assessment & Plan (1) Stiffness of left wrist joint: Code(s): M25.632 - Stiffness of left wrist, not elsewhere classified (2) Distal radius fracture, left: Code(s): S52.502A - Unspecified fracture of the lower end of left radius, initial encounter for closed fracture (3) MADHURI (generalized anxiety disorder): Code(s): F41.1 - Generalized anxiety disorder Plan Assessment & Plan: 1. Left wrist stiffness, S/P distal radius fracture 2. Left distal radius fracture, malunion From a fall, DOI: 01/19/23 With ~18 degrees apex volar angulation I educated her about this condition, and had a long discussion with her concerning treatment options, including a possible corrective osteotomy I explained that she may be able to improve her pain, ROM, and function of her wrist with occupational and therapy and activity modification, and she may not need to consider surgery. She is not a good surgical candidate at present as she smokes Marijuana daily, vapes Marijuana, and has recently switched from cigarettes to using a Nicotine patch in the last several months. She has been smoking since she was ~16 years old, and marijuana just about as long I explained that in order to proceed with a possible corrective osteotomy in the future, she would need to stop all smoking or use of a Nicotine patch for ~2-3 months prior to surgery. She expressed understanding but says she is not likely to consider surgery at this time I discussed activity modification and explained the importance of ROM exercises & using her wrist. i convinced her to return to attending OT hand therapy. She is happy with this plan I again ordered OT hand therapy to work on gentle wrist ROM & normalizing hand function She will perform ROM exercises at home, 20x daily I counselled her on the effects of smoking, and encouraged her to consider transitioning to edibles for Marijuana use if necessary She will follow up prn 3. Left arm numbness From her forearm up to her shoulder She has a hx of bilateral carpal tunnel release in the past Recent nerve conduction study within normal limits Scribed for Rachael Wong MD by Amador Lunsford, medical technologist prn, on 11/15/23 at 10:00 AM, EST. Telehealth Telehealth Location of provider rendering services: practice address Location of patient: address on file Patient Identification confirmed using: Name, : Yes Telehealth method: voice only Patient verbally consented to treatment: Yes Patient verbally consented to billing insurance company: Yes Patient informed of any privacy concerns related to visit: Yes Minutes spent on Phone/Video with Pt.: 30 Coding Level of Care Code Tele Est Pt Level 4 (26286) Diagnoses Stiffness of left wrist joint M25.632 Distal radius fracture, left S52.502A MADHURI (generalized anxiety disorder) F41.1
== END 2023-11-15 10:25 | disposition home or self-care (01) ==
LOC: HO.HOS 09:53
PROVIDERS: PCP Internal Medicine; Visit Provider Orthopaedic Surgery
DX: S52.502A Unspecified fracture of the lower end of left radius, initial encounter for closed fracture (principal); M25.632 Stiffness of left wrist, not elsewhere classified; F41.1 Generalized anxiety disorder
CPT/HCPCS: 99443

== ENCOUNTER → 2023-11-15 09:53 | Outpatient (BNVA) | payer OTHER, SELFPAY | PROVIDERS: PCP Internal Medicine; Visit Provider Orthopaedic Surgery ==

== ENCOUNTER 2024-04-08 14:23 | Emergency (ER) | payer OTHER, SELFPAY ==
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
[2024-04-08] MEDS: diphenhydrAMINE HCL 25 MG CAPSULE 50 MG PO (14:54)
[2024-04-08] MEDS: dexAMETHasone sod phosphate 10 MG/ML VIAL IVPUSH (14:54)
[2024-04-08 14:55] VITALS: BP 130/79; BP 144/92; PULSE 104; PULSE 88; RESP 16; TEMP 36.4; O2SAT 93; O2SAT 96; BMI 27.8
[2024-04-08 15:05] LABS: Appearance Urine Clear; Color Urine Yellow; Glucose Urine UA >=1000 mg/dL (Negative); Leukocyte Esterase Urine Negative (Negative); Nitrite Urine Negative (Negative); PH 6.5 (5.0-9.0); UMIC TRIGGER UACC YES; Urine Blood Negative (Negative); Urine Ketones 40 mg/dL (Negative); Urine Protein 100 (2+) mg/dL (Neg-Trace)
[2024-04-08 15:11] LABS: Bacteria Urine None Seen (None Seen); Hyaline Casts Urine 0-2 /LPF (0-2); RBC Urine 0-2 /HPF (0-2); WBC Urine 0-5 /HPF (0-5)
[2024-04-08 15:15] LABS: Amphetamine Screen Urine Not Detected (Not Detect); Barbiturates, Urine Not Detected (Not Detect); Benzodiazepines Screen Urine Not Detected (Not Detect); Buprenorphine Scr Not Detected (Not Detect); Cannabinoid Screen Urine POSITIVE (Not Detect); Cocaine Screen Urine Not Detected (Not Detect); Fentanyl, urine Not Detected (Not Detect); Methadone Screen, Urine Not Detected (Not Detect); Opiate Screen Urine Not Detected (Not Detect); Oxycodone Screen Urine Not Detected (Not Detect); Phencyclidine Screen Urine Not Detected (Not Detect)
[2024-04-08 15:20] LABS: MANUAL DIFF FLAG NO
[2024-04-08 15:22] LABS: Mean Corpuscular Volume 97.2 fL (80.0-98.0); PLT CLUMP 1; SCAN SMEAR FLAG 1
[2024-04-08 15:24] LABS: Basophils Absolute Auto 0.1 X10*3/uL (0.0-0.2); Basophils Percent Auto 0.7 % (0-2); Eosinophils Absolute Auto 0.1 X10*3/uL (0.0-0.4); Eosinophils Percent Auto 1.1 % (0-4); Hematocrit 52.6 % (37.0-47.0); Hemoglobin 17.9 g/dl (12.0-16.0); Imm Gran Abs Auto 0.08 X10*3/uL (0.00-0.03); Imm Gran Pct Auto 0.7 % (0.0-0.4); Lymphocytes Absolute Auto 1.9 X10*3/uL (1.2-4.9); Mean Corpuscular Hemoglobin 33.1 pg (27.0-33.0); Mean Platelet Volume 11.1 fL (9.4-12.3); Monocytes Absolute Auto 0.6 X10*3/uL (0.1-1.2); Monocytes Percent Auto 5.2 % (2-11); Neutrophils Absolute Auto 8.3 x10*3/uL (2.0-8.3); Neutrophils Percent Auto 75.3 % (45-73); Platelet Count 115 X10*3/uL (160-400); Red Blood Count 5.41 X10*6/uL (4.20-5.50); Red Cell Distribution Width 14.3 % (11.0-16.0); White Blood Count 11.1 X10*3/uL (4.8-10.8)
[2024-04-08 15:44] LABS: Alanine Aminotransferase 31 U/L (0-31); Albumin Level 4.4 g/dL (3.5-5.0); Alkaline Phosphatase 89 U/L (39-117); Anion Gap 17 (12-20); Aspartate Amino Transferase 34 U/L (5-31); Bilirubin Total 0.6 mg/dL (0.0-1.0); Blood Urea Nitrogen 9 mg/dL (9-16); Carbon Dioxide 21 mmol/L (22-29); Chloride 104 mmol/L (96-108); Creatinine Clr Calc Pharmacy 65.5; Estimated Glomerular Filt Rate > 60; Ethanol < 10 mg/dL; Glucose Random 154 mg/dL (60-115); Magnesium 2.1 mg/dL (1.6-2.6); Potassium 3.9 mmol/L (3.3-5.1); Sodium 138 mmol/L (135-145); Total Protein 8.3 g/dL (6.5-8.0)
[2024-04-08 16:45] LABS: Acetaminophen LAB < 3 mcg/mL (<30); Salicylate < 5.0 mg/dL (15-30)
[2024-04-08 20:01] VITALS: BP 144/86; PULSE 71; RESP 19; TEMP 36.4; O2SAT 91
== END 2024-04-08 20:55 | disposition home or self-care (01) ==
PROVIDERS: Physician Assistant; Emergency Provider Emergency Medicine
DX: F33.1 Major depressive disorder, recurrent, moderate (principal); R45.851 Suicidal ideations; E11.9 Type 2 diabetes mellitus without complications; F17.210 Nicotine dependence, cigarettes, uncomplicated; Z79.4 Long term (current) use of insulin; Z63.79 Other stressful life events affecting family and household; Z79.899 Other long term (current) drug therapy; Z51.81 Encounter for therapeutic drug level monitoring
CPT/HCPCS: 36415; 80053; 80143; 80179; 80307; 81001; 83735; 85025; 99284; J1100; S9485

== ENCOUNTER 2025-07-23 10:25 | Outpatient (AMB) | payer OTHER, SELFPAY ==
--- NOTE | 2025-07-23 10:31 | MHC.OFFVIS ---
Intake Visit Reasons: 3M FUV Intake Note: Patient is a 65 year old female here for 3 month follow up mid to lower back to the right hip pain Allergies acetaminophen (From PERCOCET) Allergy (Intermediate, Verified 07/23/25 10:31) RASH amoxicillin (AMOXICILLIN) Allergy (Intermediate, Verified 07/23/25 10:31) DIFF BREATHING, HIVES oxycodone (From PERCOCET) Allergy (Intermediate, Verified 07/23/25 10:31) RASH codeine (CODEINE) Allergy (Unknown, Verified 07/23/25 10:31) UNKNOWN Sulfa (Sulfonamide Antibiotics) (SULFA (SULFONAMIDE ANTIBIOTICS)) Allergy (Unknown, Verified 07/23/25 10:31) RASH sulfamethoxazole (From BACTRIM) Adverse Reaction (Unknown, Verified 07/23/25 10:31) SEVERE MIGRAINE trimethoprim (From BACTRIM) Adverse Reaction (Unknown, Verified 07/23/25 10:31) SEVERE MIGRAINE HPI Comments Details: Ms Selby is a 65-year-old female seen in evaluation today for right-sided low back and hip pain. She underwent right L5 TFESI 04/08/2025. Patient denies any relief of her symptoms. Patient reports that she fell landing on her right hip and pelvis after the injection because her leg was numb. She reports pain level today of 7/10. She has been using ibuprofen for pain. She denies any incontinence, saddle anesthesia urinary retention. We did trial right greater trochanteric bursal injection as well. Patient denies any groin pain therefore I do not believe her symptoms are coming from her hip joint. Patient would like to consider further treatment options. 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 No incontinence, saddle anesthesia or urinary retention. Physical Exam Exam Exam: Lumbar Spine: Examination of her lumbar spine, there is no visible swelling or deformity. She is tender to the right lower lumbar facets as well as her right SI joint. She is otherwise nontender. Full range of motion of the lumbar spine. She does have an increase in pain with facet loading. Special Tests: Lhermittes sign was negative Heel Toe walk is normal Left straight leg raise: Negative Right straight leg raise: Negative Special tests Niya test is positive right SI joint Ganslen's test is positive right SI joint SI Joint compression test positive right SI joint Deisy test negative Piriformis stretch is negative Lower Extremities: Full range of motion bilateral lower extremities. No calf pain or edema. Neuro: Sensation: Intact to lower extremities bilaterally Strength L2 (Psoas): 5/5 on the left and 5/5 on the right. L3 (Quads): 5/5 on the left and 5/5 on the right. L4 (Ant tibialis): 5/5 on the left and 5/5 on the right. L5 (EHL) 5/5 on the left and 5/5 on the right. S1 (Gastroc): 5/5 on the left and 5/5 on the right. DTR L4: (Patellar) Left 2 Right 2 S1: (Achilles) Left 2 Right 2 Babinski Downgoing No pathologic clonus. No involuntary movement. Assessment & Plan Assessment & Plan (1) Chronic pain: Code(s): G89.29 - Other chronic pain Category: Medical Qualifiers: Chronic pain type: chronic pain syndrome Qualified Code(s): G89.4 - Chronic pain syndrome (2) Lumbar radiculopathy: Code(s): M54.16 - Radiculopathy, lumbar region Category: Medical Plan Ms. Selby is a 65-year-old female seen in evaluation today for right-sided low back pain. Patient did not respond to right L5 TFESI or greater trochanteric bursal injection. Patient denies any relief with conservative treatment. She is allergic to multiple pain medications as well. Upon re-evaluation she is markedly tender over the right SI joint with positive findings. At this point I recommend right SI joint injection and she is eager to proceed. We will obtain prior authorization for her injection and contact her once we have done so. In the meantime she will continue her home exercise plan and medications as prescribed. Thank you for allowing me to participate in the care of your patient. Coding Level of Care Code Tele Est Pt Level 3 (93223) Diagnoses Chronic pain syndrome G89.4 Chronic pain type: chronic pain syndrome Lumbar radiculopathy M54.16
== END 2025-07-23 10:55 | disposition home or self-care (01) ==
LOC: HO.HPHYS 10:25
PROVIDERS: Visit Provider Physician Assistant
DX: G89.4 Chronic pain syndrome (principal); M54.16 Radiculopathy, lumbar region
CPT/HCPCS: 99213

== ENCOUNTER → 2025-07-23 10:25 | Outpatient (BNVA) | payer OTHER, SELFPAY | PROVIDERS: Visit Provider Physician Assistant | DX: M54.16 Radiculopathy, lumbar region (principal); G89.4 Chronic pain syndrome | CPT/HCPCS: 99212 ==